=== PATIENT | male | born 1955 | race Caucasian/White ===

== ENCOUNTER 2019-07-08 09:14 | Day surgery (SDC) | payer MEDICARE ==
[2019-07-07 09:02] VITALS: BMI 38.4
[~2019-07-08 09:14] MED LIST: LACTATED RINGERS 1,000 ML IV SCH
[2019-07-08 09:38] VITALS: RESP 16; TEMP 98.2
[2019-07-08] MEDS ORDERED: LIDOCAINE 1% 20 ML VIAL (10MG/ML) FOR IV START INTRADERMA ONE (09:43)
[2019-07-08 09:55] LABS: Glucose,Whole Blood 193 mg/dL (75-99)
[2019-07-08] MEDS ORDERED: LIDOCAINE 1% INJ 10MG/ML (20 ML MDV) ONE (10:04)
[2019-07-08] MEDS ORDERED: PROPOFOL 10 MG/ML 20 ML VIAL IV ONE (10:04)
--- NOTE | 2019-07-08 10:35 | P.PCN ---
Date of Procedure: 07/08/19 Description of Procedure: BRIEF HISTORY: Patient is a 63-year-old pleasant male scheduled for an elective colonoscopy as a part of screening for malignant neoplasm of the colon. Patient believes last colonoscopy was 5 years ago was ensure the results. Denies any family history of colon cancer, change in bowel habits, blood per rectum or abdominal pain. PROCEDURE PERFORMED: Colonoscopy. PREOPERATIVE DIAGNOSIS: Screening for malignant neoplasm colon, last colonoscopy 5 years ago per the marta coleman's recollection. ESTIMATED BLOOD LOSS: Minimal. IV sedation per Anesthesia. PROCEDURE: After informed consent was obtained, the patient, was brought into the endoscopy unit. IV sedation was administered by Anesthesia under continuous monitoring. Digital rectal examination was normal. Initially the Olympus CF-190 flexible video colonoscope was then inserted in the rectum, gradually advanced into the cecum without any difficulty. Careful examination was performed as the scope was gradually being withdrawn. Ileocecal valve and the appendiceal orifice were visualized and appeared normal. Prep was excellent. Mucosa of the cecum, ascending colon, transverse colon, descending colon, sigmoid colon, and rectum appeared normal. Retroflexion was performed in the rectum and no lesions were seen, low-grade internal hemorrhoids. The patient tolerated the procedure well. IMPRESSION: Normal-appearing colon from rectum to cecum. RECOMMENDATIONS: Findings of this examination were discussed with the patient and his . Okay to resume medications and diet. Would recommend repeat colonoscopy in 10 years for screening purposes, however if patient had polypectomies on prior colono scopies 5 year interval would be more appropriate.
[2019-07-08 11:14] VITALS: BP 147/84; PULSE 92
== END 2019-07-08 11:34 | disposition home or self-care (01) ==
LOC: ORWHC2ENDO 09:14
PROVIDERS: ATTEND Internal Medicine
DX: Z12.11 Encounter for screening for malignant neoplasm of colon (principal); K64.8 Other hemorrhoids; I10 Essential (primary) hypertension; E78.5 Hyperlipidemia, unspecified; E11.9 Type 2 diabetes mellitus without complications; E07.9 Disorder of thyroid, unspecified; F32.9 Major depressive disorder, single episode, unspecified; I25.10 Atherosclerotic heart disease of native coronary artery without angina pectoris; I25.2 Old myocardial infarction; Z95.5 Presence of coronary angioplasty implant and graft; Z87.891 Personal history of nicotine dependence; Z79.84 Long term (current) use of oral hypoglycemic drugs; Z79.890 Hormone replacement therapy; Z79.899 Other long term (current) drug therapy
CPT/HCPCS: J2001; J2704; G0121

== ENCOUNTER → 2023-01-20 | Outpatient (CLI) | payer MEDICARE, OTHER ==
[2023-01-20 15:52] LABS: Appearance,Urine Clear (Clear); Bilirubin,Urine Negative (Negative); Blood,Urine Small (Negative); Color,Urine Yellow (Yellow); Ketones,Urine Negative (Negative); Nitrite,Urine Negative (Negative); PH, Urine 5.5 (5.0-8.0); Urobilinogen,Urine 0.2 (0.2,1.0)
[2023-01-20 16:16] LABS: Bacteria,Urine Trace /HPF (None Seen)
[2023-01-20 17:03] LABS: Basophils # (A) 0.11 X 10*3/uL (0.00-0.10); Basophils % (A) 1.6 %; Eosinophils # (A) 0.31 X 10*3/uL (0.04-0.35); Eosinophils % (A) 4.4 %; HCT 30.3 % (39.6-50.0); HGB 8.8 g/dL (13.0-17.0); Immature Grans, Automated 0.4 %; Lymphocytes # (A) 0.66 X 10*3/uL (0.90-5.00); Lymphocytes % (A) 9.3 %; MCH 22.7 pg (27.0-32.0); MCV 78.1 fL (80.0-97.0); Mean Platelet Volume 9.6 fL (9.5-12.2); Monocytes % (A) 8.5 %; NRBC Per 100 WBC 0 /100 WBCS (0.0-0.0); Neutrophils # (A) 5.38 X 10*3/uL (1.80-7.70); Neutrophils % (A) 75.8 %; Platelet Count 350 X 10*3/uL (140-440); RBC 3.88 X 10*6/uL (4.40-5.60); RDW 18.3 % (11.5-14.5); WBC 7.09 X 10*3/uL (4.50-10.00)
[2023-01-20 17:07] LABS: African American GFR (CKD) 58.5 (60.0-200.0); Anion Gap 15.8 mmol/L (10.00-18.00); BUN/Creat Ratio 16.6 Ratio (12.00-20.00); Blood Urea Nitrogen 23.4 mg/dL (9.0-27.0); Calcium 9.4 mg/dL (8.7-10.3); Carbon Dioxide 21.6 mmol/L (20.0-27.5); Non-African American GFR(CKD) 50.5 (60.0-200.0); Potassium 4.8 mmol/L (3.5-5.5)
== END | disposition home or self-care (01) ==
LOC: LABPAT 09:36
PROVIDERS: ATTEND Urology
DX: Z01.812 Encounter for preprocedural laboratory examination (principal); N40.1 Benign prostatic hyperplasia with lower urinary tract symptoms; R31.29 Other microscopic hematuria
CPT/HCPCS: 80048; 81001; 85025; 87086

== ENCOUNTER 2023-01-28 05:35 | Day surgery (SDC) | payer MEDICARE, OTHER ==
[2023-01-24 12:30] VITALS: BMI 33.1
[2023-01-28] MEDS ORDERED: ONDANSETRON 4 MG/2 ML VIAL IVP ONE (06:03)
[2023-01-28] MEDS ORDERED: LIDOCAINE 1% (10MG/ML) FOR IV START INTRADERMA PRN (06:03)
[2023-01-28] MEDS ORDERED: MIDAZOLAM 2 MG/2 ML VIAL IV PRN (06:03)
[2023-01-28] MEDS ORDERED: DEXAMETHASONE SOD PHOSPHATE 4 MG/ML 1 ML VIAL IV ONE (06:03)
[2023-01-28] MEDS: LACTATED RINGERS 1,000 ML IV SCH ×2 (06:44→07:16)
[2023-01-28 06:57] LABS: Glucose,Whole Blood 262 mg/dL (70-110)
[2023-01-28] MEDS ORDERED: HYDROmorphone 0.5 MG/0.5 ML SYRINGE IVP PRN (07:00)
[2023-01-28 07:07] LABS: Anisocytosis Slight; Basophils # (A) 0.1 k/uL (0-0.2); Basophils % (A) 1 %; Eosinophils # (A) 0.4 k/uL (0-0.7); Eosinophils % (A) 5 %; HGB 9.1 gm/dL (13.0-17.5); Hypochromasia Marked; Lymphocytes # (A) 0.7 k/uL (1.0-4.8); Lymphocytes % (A) 11 %; MCH 23.1 pg (25.0-35.0); MCHC 29.4 g/dL (31.0-37.0); MCV 78.6 fL (80.0-100.0); Mean Platelet Volume 7.6; Microcytosis Slight; Monocytes # (A) 0.5 k/uL (0-1.0); Monocytes % (A) 7 %; Neutrophils # (A) 5.1 k/uL (1.3-7.7); Neutrophils % (A) 73 %; Platelet Count 323 k/uL (150-450); Poikilocytosis Slight; RBC 3.94 m/uL (4.30-5.90); RDW 17.5 % (11.5-15.5); WBC 6.9 k/uL (3.8-10.6)
[2023-01-28] MEDS ORDERED: MIDAZOLAM 2 MG/2 ML VIAL ONE (07:11)
[2023-01-28] MEDS ORDERED: NEOSTIGMINE 1 MG/ML 10 ML VIAL ONE (07:11)
[2023-01-28] MEDS ORDERED: SUCCINYLCHOLINE CHLORIDE 200 MG/10 ML VIAL IV ONE (07:11)
[2023-01-28] MEDS ORDERED: ROCURONIUM 10 MG/ML (5 ML VIAL) IV ONE (07:11)
[2023-01-28] MEDS ORDERED: fentaNYL (PF) 50 MCG/ML 2 ML AMP ONE (07:11)
[2023-01-28] MEDS ORDERED: PROPOFOL 10 MG/ML 20 ML VIAL IV ONE (07:11)
[2023-01-28] MEDS ORDERED: GLYCOPYRROLATE 0.2 MG/ML 2 ML VIAL ONE (07:11)
[2023-01-28] MEDS ORDERED: LIDOCAINE 2% INJ 20 MG/ML (2 ML VIAL) ONE (07:11)
--- NOTE | 2023-01-28 07:22 | P.HPIHPCON ---
History of Present Illness H&P Date: 01/28/23 Chief Complaint: BPH, urinary retention This is a 67-year-old male with history of BPH, and significant prostate enlargement patient is in urinary retention and has failed trial of voids. Underwent a cystoscopy which confirmed evidence of an obstructive prostate. Option of transurethral resection of the prostate was discussed with him. Risk of bleeding, infection, urinary incontinence, retrograde ejaculate, erectile dysfunction, strictures and persistent retention was discussed with him. Discussed with him given his comorbidities risk of medical complications. He understood all the risk and agreed to proceed Consent for Procedure: I have explained the operation/procedure to the patient, including the risks, benefits, side effects, alternative therapies (including not receiving the proposed treatment or service), the likelihood of the patient achieving his/her goals, and potential recuperation problems for the procedure/sedation/analgesia, as well as any blood products, if indicated. I also explained to the patient the risks, benefits and side effects of the alternatives, as well as the risks related to not receiving the proposed procedure, care, treatment, or services. Past Medical History Past Medical History: COPD, Diabetes Mellitus, Hyperlipidemia, Hypertension, Myocardial Infarction ([place]), Prostate Disorder, Thyroid Disorder Additional Past Medical History / Comment(s): Enlarged prostate, difficulty urinating for the last 3 weeks, has had urinary catheter for the last 2 1/2 weeks. Hemorrhoids with bleeding with each bowel movement, due to have Colonoscopy, has Dr appointment regarding this 02/04/23. Patient states has had low iron before because of bleeding hemorrhoids. Occasional lightheadedness. Last Myocardial Infarction Date:: 2000 History of Any Multi-Drug Resistant Organisms: None Reported Past Surgical History: Heart Catheterization, Heart Catheterization With Stent, Hernia Repair Additional Past Surgical History / Comment(s): COLONOSCOPY. 3 total stents. Last heart catheterization 01/07/23, no stents. Past Anesthesia/Blood Transfusion Reactions: No Reported Reaction Additional Past Anesthesia/Blood Transfusion Reaction / Comment(s): WAS SLOW TO WAKE UP AFTER HERNIA SURGERY. Date of Last Stent Placement:: 2000, 2014 Past Psychological History: Depression Smoking Status: Former smoker Past Alcohol Use History: Occasional Additional Past Alcohol Use History / Comment(s): QUIT SMOKING IN 2000. Past Drug Use History: None Reported - Past Family History Mother Family Medical History: No Reported History Medications and Allergies Home Medications Medication Instructions Recorded Confirmed Type Insulin NPH Hum/Reg Insulin Hm 10 unit SQ BID-W/MEALS 07/07/19 01/28/23 History [Novolin 70-30 100 Unit/ml Vial] Isosorbide Mononitrate ER [Imdur] 60 mg PO QAM 07/07/19 01/28/23 History Levothyroxine Sodium [Synthroid] 50 mcg PO QAM 07/07/19 01/28/23 History PARoxetine [Paxil] 20 mg PO QAM 07/07/19 01/28/23 History Zolpidem [Ambien] 10 mg PO HS 07/07/19 01/28/23 History glyBURIDE [Diabeta] 10 mg PO AC-BID 07/07/19 01/28/23 History metFORMIN HCL [Glucophage] 1,000 mg PO BID 07/07/19 01/28/23 History Advair (Unknown Dose) 1 puff INHALATION BID 01/24/23 01/28/23 History Aspirin [Adult Low Dose Aspirin EC] 81 mg PO DAILY 01/24/23 01/28/23 History Atorvastatin [Lipitor] 80 mg PO HS 01/24/23 01/28/23 History Clopidogrel [Plavix] 75 mg PO DAILY 01/24/23 01/28/23 History Furosemide [Lasix] 40 mg PO DAILY 01/24/23 01/28/23 History Glipizide (Unknown Dose) 1 tab PO DAILY 01/24/23 01/28/23 History Losartan [Cozaar] 50 mg PO HS 01/24/23 01/28/23 History Multivitamins, Thera [Multivitamin 1 tab PO DAILY 01/24/23 01/28/23 History (formulary)] Potassium Chloride ER [K-Dur 10] 10 meq PO DAILY 01/24/23 01/28/23 History Solifenacin Succinate 5 mg PO HS 01/24/23 01/28/23 History Spironolactone 25 mg PO DAILY 01/24/23 01/28/23 History Stool Softener 1 tab PO DAILY 01/24/23 01/28/23 History Tamsulosin [Flomax] 0.4 mg PO HS 01/24/23 01/28/23 History carvediloL 12.5 mg PO QAM 01/24/23 01/28/23 History Allergies Allergy/AdvReac Type Severity Reaction Status Date / Time No Known Allergies Allergy Verified 01/28/23 06:13 Surgical - Exam Vital Signs Temp Pulse Resp BP Pulse Ox 97.7 F 73 20 127/63 95 01/28/23 06:24 01/28/23 06:24 01/28/23 06:24 01/28/23 06:24 01/28/23 06:24 - General no distress, moderate pain - Eyes normal ocular movement, no pale - ENT normal nares, normal mucosa - Respiratory normal expansion, normal respiratory effort - Abdomen Abdomen: soft, non tender - Psychiatric oriented to time, oriented to person, oriented to place Results - Labs 01/28/23 07:02 Abnormal Lab Results - Last 24 Hours (Table) 01/28/23 01/28/23 Range/Units 06:38 07:02 RBC 3.94 L (4.30-5.90) m/uL Hgb 9.1 L (13.0-17.5) gm/dL Hct 31.0 L (39.0-53.0) % MCV 78.6 L (80.0-100.0) fL MCH 23.1 L (25.0-35.0) pg MCHC 29.4 L (31.0-37.0) g/dL RDW 17.5 H (11.5-15.5) % Lymphocytes # 0.7 L (1.0-4.8) k/uL POC Glucose (mg/dL) 262 H (70-110) mg/dL Assessment and Plan Assessment: 67-year-old male with history of BPH OR for TURP
[2023-01-28 07:25] LABS: Potassium 5.3 mmol/L (3.5-5.1)
[2023-01-28] MEDS ORDERED: INSULIN ASPART (NovoLOG) 100 UNIT/ML VIAL SQ SCH (07:30)
[2023-01-28 09:21] VITALS: TEMP 97.6
--- NOTE | 2023-01-28 09:25 | P.OP ---
Date of Procedure: 01/28/23 Preoperative Diagnosis: BPH, urinary retention Postoperative Diagnosis: Same Procedure(s) Performed: cystoscopy, TURP (bipolar) Implants: none Anesthesia: RIZWANA Surgeon: Gael Jay Estimated Blood Loss (ml): 150 Pathology: other (prostate tissue) Condition: stable Disposition: PACU Indications for Procedure: This is a 67-year-old male with history of BPH, and significant prostate enlargement patient is in urinary retention and has failed trial of voids. Underwent a cystoscopy which confirmed evidence of an obstructive prostate. Option of transurethral resection of the prostate was discussed with him. Risk of bleeding, infection, urinary incontinence, retrograde ejaculate, erectile dysfunction, strictures and persistent retention was discussed with him. Discussed with him given his comorbidities risk of medical complications. He understood all the risk and agreed to proceed Operative Findings: Significant prostate enlargement, with significant medial lobe with intravesical extension Description of Procedure: patient brought to the operating room, general anesthesia was induced. He was prepped and draped in sterile fashion and placed in a dorsal lithotomy position. Resectoscope fitted with 25-Beninese sheath was inserted per urethra, cystoscopy was performed which showed no abnormality within the bladder, but of note the bladder was heavily trabeculated. There was significant prostate enlargement with a significant medial lobe with significant intravesical extension. Using the bipolar resectoscope the prostate was resected down to the surgical capsule. Area of resection was fulgurated, hemostasis was achieved using cautery. Resection was carried distal to the bladder neck and staying proximal to the Veru. Both ureteral orifices were visualized and they were not injured during resection. Prostate chips were irrigated out using the Rafaelaik evacuator. Repeat cystoscopy showed no evidence of bleeding, or any prostate chips. The prostatic fossa was wide open. recystoscope was withdrawn and a 22-Beninese Sanchez was placed with return of clear urine. The bladder was irrigated to clear. Patient tolerated procedure well was taken to recovery in stable condition
[2023-01-28 09:31] LABS: Glucose,Whole Blood 296 mg/dL (70-110)
[2023-01-28 10:01] VITALS: RESP 18
[2023-01-28 12:09] VITALS: BP 149/74; PULSE 67
== END 2023-01-28 12:56 | disposition home or self-care (01) ==
LOC: OR 05:35
PROVIDERS: ATTEND Urology
DX: N40.1 Benign prostatic hyperplasia with lower urinary tract symptoms (principal); R33.8 Other retention of urine; E11.9 Type 2 diabetes mellitus without complications; J44.9 Chronic obstructive pulmonary disease, unspecified; E78.5 Hyperlipidemia, unspecified; I10 Essential (primary) hypertension; I25.2 Old myocardial infarction; F10.90 Alcohol use, unspecified, uncomplicated; Z87.891 Personal history of nicotine dependence; F32.A Depression, unspecified; E07.9 Disorder of thyroid, unspecified; Z98.890 Other specified postprocedural states; Z95.5 Presence of coronary angioplasty implant and graft
CPT/HCPCS: 86900; 86901; 80051; 85025; 86850; 52601; J2250; J0330; J2710; J0690; J2405; J3010; J2704; J2001; 88305

== ENCOUNTER 2023-03-03 17:38 | Inpatient (IN) | payer MEDICARE, OTHER ==
[2023-03-03] MEDS ORDERED: NALOXONE 0.4 MG/ML 1 ML VIAL IV PRN (17:49)
[2023-03-03] MEDS ORDERED: ACETAMINOPHEN TAB 325 MG TAB PO PRN (17:49)
--- NOTE | 2023-03-03 17:56 | ED ---
General Adult HPI - General Chief complaint: Recheck/Abnormal Lab/Rx Stated complaint: CHF exacerbation, anemia Time Seen by Provider: 03/03/23 17:42 Source: patient, EMS, RN notes reviewed Mode of arrival: EMS Limitations: no limitations - History of Present Illness Initial comments: 67-year-old male presenting as transfer from outside hospital with anemia and CHF. Patient has history of CAD and recent history of anemia. He received 2 units transfusion one week ago at outside hospital. Patient presents to [facility] with chief complaint of lightheadedness. He was noted to be anemic with a hemoglobin of 6.6 requiring transfusion. Initially had an elevated BNP and was given 20 mg Lasix. Patient's chief complaint was lightheadedness and mild dyspnea. No central chest pain. Denies rectal bleeding and apparently had Hemoccult testing performed prior to transfer which was negative. He is a little over one month postop TURP. Denies fever. Denies cough. - Related Data Home Medications Medication Instructions Recorded Confirmed Insulin NPH Hum/Reg Insulin Hm 10 unit SQ PC-BID 07/07/19 03/03/23 [Novolin 70-30 100 Unit/ml Vial] Isosorbide Mononitrate ER [Imdur] 60 mg PO DAILY 07/07/19 03/03/23 Levothyroxine Sodium [Synthroid] 50 mcg PO DAILY 07/07/19 03/03/23 PARoxetine [Paxil] 20 mg PO DAILY 07/07/19 03/03/23 Zolpidem [Ambien] 10 mg PO HS 07/07/19 03/03/23 metFORMIN HCL [Glucophage] 1,000 mg PO BID 07/07/19 03/03/23 Aspirin [Adult Low Dose Aspirin EC] 81 mg PO DAILY 01/24/23 03/03/23 Atorvastatin [Lipitor] 80 mg PO HS 01/24/23 03/03/23 Clopidogrel [Plavix] 75 mg PO DAILY 01/24/23 03/03/23 Furosemide [Lasix] 40 mg PO DAILY 01/24/23 03/03/23 Losartan [Cozaar] 50 mg PO HS 01/24/23 03/03/23 Multivitamins, Thera [Multivitamin 1 tab PO DAILY 01/24/23 03/03/23 (formulary)] Potassium Chloride ER [K-Dur 10] 10 meq PO DAILY 01/24/23 03/03/23 Solifenacin Succinate 5 mg PO HS 01/24/23 03/03/23 Spironolactone 25 mg PO DAILY 01/24/23 03/03/23 Tamsulosin [Flomax] 0.4 mg PO HS 01/24/23 03/03/23 carvediloL 12.5 mg PO DAILY 01/24/23 03/03/23 Ferrous Sulfate [Iron (65 MG 325 mg PO DAILY 03/03/23 03/03/23 Elemental)] Fluticasone Propion/Salmeterol 1 puff INHALATION RT-BID 03/03/23 03/03/23 [Advair 250-50 Diskus] glipiZIDE [Glucotrol] 10 mg PO DAILY 03/03/23 03/03/23 Allergies Allergy/AdvReac Type Severity Reaction Status Date / Time No Known Allergies Allergy Verified 03/03/23 18:18 Review of Systems ROS Statement: Those systems with pertinent positive or pertinent negative responses have been documented in the HPI. ROS Other: All systems not noted in ROS Statement are negative. Past Medical History Past Medical History: Diabetes Mellitus, Hyperlipidemia, Hypertension, Myocardial Infarction ([place]), Thyroid Disorder Last Myocardial Infarction Date:: 2000 History of Any Multi-Drug Resistant Organisms: None Reported Past Surgical History: Heart Catheterization With Stent, Hernia Repair Additional Past Surgical History / Comment(s): COLONOSCOPY Past Anesthesia/Blood Transfusion Reactions: No Reported Reaction Additional Past Anesthesia/Blood Transfusion Reaction / Comment(s): WAS SLOW TO WAKE UP AFTER HERNIA SX Date of Last Stent Placement:: Past Psychological History: Depression Past Alcohol Use History: Occasional Past Drug Use History: None Reported - Past Family History Mother Family Medical History: No Reported History General Exam Limitations: no limitations General appearance: alert, in no apparent distress Head exam: Present: atraumatic, normocephalic Eye exam: Present: normal appearance, PERRL ENT exam: Present: normal exam Neck exam: Present: normal inspection. Absent: tenderness Respiratory exam: Present: normal lung sounds bilaterally. Absent: respiratory distress, wheezes Cardiovascular Exam: Present: regular rate, normal rhythm GI/Abdominal exam: Present: soft. Absent: distended, tenderness, guarding Extremities exam: Present: normal inspection, normal capillary refill Neurological exam: Present: alert, oriented X3, CN II-XII intact. Absent: motor sensory deficit Psychiatric exam: Present: normal affect, normal mood Skin exam: Present: warm, dry, intact. Absent: pallor Course Vital Signs 03/03/23 17:47 Temperature 98 F Pulse Rate 85 Respiratory 20 Rate Blood Pressure 129/66 O2 Sat by Pulse 97 Oximetry Medical Decision Making - Medical Decision Making Was pt. sent in by a medical professional or institution (, [facility], [employer], urgent care, hospital, or [facility]...) When possible be specific @Sent from outside emergency department for anemia Did you speak to anyone other than the patient for history (EMS, parent, family, police, friend...)? What history was obtained from this source @ -No Did you review nursing and triage notes (agree or disagree)? Why? @ -I reviewed and agree with nursing and triage notes Were old charts reviewed (outside hosp., previous admission, EMS record, old EKG, old radiological studies, urgent care reports/EKG's, [facility] records)? Report findings @ -No old charts were reviewed Differential Diagnosis (chest pain, altered mental status, abdominal pain women, abdominal pain men, vaginal bleeding, weakness, fever, dyspnea, syncope, headache, dizziness, GI bleed, back pain, seizure, CVA, palpatations, mental health, musculoskeletal)? @ -Differential Syncope: Valvular disease, hypertrophic cardiomyopathy, pulmonary embolism, tamponade, tachycardia, bradycardia, OR, hypovolemia, hemorrhage, dissection, anemia, intracranial hemorrhage, seizure, hypoglycemia, carbon monoxide poisoning, this is not meant to be an all-inclusive list. EKG interpreted by me (3pts min.). @ -EKG sinus rhythm with first-degree AV block, frequent PVCs, rate of 81, ID interval 251, QRS duration 90, QTC [address] segment elevation. X-rays interpreted by me (1pt min.). @ -None done CT interpreted by me (1pt min.). @ -None done U/S interpreted by me (1pt. min.). @ -None done What testing was considered but not performed or refused? (CT, X-rays, U/S, labs)? Why? @ -None What meds were considered but not given or refused? Why? @ -None Did you discuss the management of the patient with other professionals (professionals i.e. , [facility], [employer]ER, lab, RT, psych nurse, elementary school social worker, driller and reamer, teacher, corporate officer, immigration case worker)? Give summary @Dr. Dodge Was smoking cessation discussed for >3mins.? @ -No Was critical care preformed (if so, how long)? @ -No Were there social determinants of health that impacted care today? How? (Homelessness, low income, unemployed, alcoholism, drug addiction, transportation, low edu. Level, literacy, decrease access to med. care, shelter, rehab)? @ -No Was there de-escalation of care discussed even if they declined (Discuss DNR or withdrawal of care, Hospice)? DNR status @ -No What co-morbidities impacted this encounter? (DM, HTN, Smoking, COPD, CAD, Cancer, CVA, ARF, Chemo, Hep., AIDS, mental health diagnosis, sleep apnea, morbid obesity)? @ -[CAD, anemia Was patient admitted / discharged? Hospital course, mention meds given and ro cristal, prescriptions, significant lab abnormalities, going to OR and other pertinent info. @ -[67-year-old male transferred from outside hospital for evaluation of anemia requiring transfusion and CHF. Patient been transfused one unit, repeat hemoglobin in the emergency department was 7.3. This will require trending. Patient's symptoms have improved with transfusion. He is also was given Lasix prior to transfer. No significant dyspnea currently. Patient will be admitted to internal medicine. Undiagnosed new problem with uncertain prognosis? @ -No Drug Therapy requiring intensive monitoring for toxicity (Heparin, Nitro, Insulin, Cardizem)? @ -No Were any procedures done? @ -No Diagnosis/symptom? @ -[Symptomatic anemia Acute, or Chronic, or Acute on Chronic? @ -Acute Uncomplicated (without systemic symptoms) or Complicated (systemic symptoms)? @ -Complicated Side effects of treatment? @ -No Exacerbation, Progression, or Severe Exacerbation? @ -No Poses a threat to life or bodily function? How? (Chest pain, USA, OR, pneumonia, PE, COPD, DKA, ARF, appy, cholecystitis, CVA, Diverticulitis, Homicidal, Suicidal, threat to staff... and all critical care pts) @ -Yes, hemorrhagic shock - Lab Data Result diagrams: 03/03/23 17:51 03/03/23 18:05 Lab Results 06/09/1303/03/23 03/03/23 Range/Units 17:51 17:51 18:05 WBC 8.8 (3.8-10.6) k/uL RBC 3.09 L (4.30-5.90) m/uL Hgb 7.3 L D (13.0-17.5) gm/dL Hct 23.6 L (39.0-53.0) % MCV 76.6 L (80.0-100.0) fL MCH 23.5 L (25.0-35.0) pg MCHC 30.7 L (31.0-37.0) g/dL RDW 17.5 H (11.5-15.5) % Plt Count 484 H (150-450) k/uL MPV 7.4 Hypochromasia Marked Poikilocytosis Marked Anisocytosis Slight Microcytosis Slight PT 11.9 (9.0-12.0) sec INR 1.2 H (<1.2) APTT 19.7 L (22.0-30.0) sec Sodium 137 (137-145) mmol/L Potassium 4.5 (3.5-5.1) mmol/L Chloride 103 (98-107) mmol/L Carbon Dioxide 22 (22-30) mmol/L Anion Gap 12 mmol/L BUN 45 H (9-20) mg/dL Creatinine 1.26 H (0.66-1.25) mg/dL Est GFR (CKD-EPI)AfAm 67 (>60 ml/min/1.73 sqM) Est GFR (CKD-EPI)NonAf 58 (>60 ml/min/1.73 sqM) Glucose 74 (74-99) mg/dL Calcium 8.9 (8.4-10.2) mg/dL Total Bilirubin 0.7 (0.2-1.3) mg/dL AST 21 (17-59) U/L ALT 22 (4-49) U/L Alkaline Phosphatase 75 (38-126) U/L NT-Pro-B Natriuret Pep pg/mL Total Protein 5.6 L (6.3-8.2) g/dL Albumin 3.3 L (3.5-5.0) g/dL 03/03/23 Range/Units 18:05 WBC (3.8-10.6) k/uL RBC (4.30-5.90) m/uL Hgb (13.0-17.5) gm/dL Hct (39.0-53.0) % MCV (80.0-100.0) fL MCH (25.0-35.0) pg MCHC (31.0-37.0) g/dL RDW (11.5-15.5) % Plt Count (150-450) k/uL MPV Hypochromasia Poikilocytosis Anisocytosis Microcytosis PT (9.0-12.0) sec INR (<1.2) APTT (22.0-30.0) sec Sodium (137-145) mmol/L Potassium (3.5-5.1) mmol/L Chloride (98-107) mmol/L Carbon Dioxide (22-30) mmol/L Anion Gap mmol/L BUN (9-20) mg/dL Creatinine (0.66-1.25) mg/dL Est GFR (CKD-EPI)AfAm (>60 ml/min/1.73 sqM) Est GFR (CKD-EPI)NonAf (>60 ml/min/1.73 sqM) Glucose (74-99) mg/dL Calcium (8.4-10.2) mg/dL Total Bilirubin (0.2-1.3) mg/dL AST (17-59) U/L ALT (4-49) U/L Alkaline Phosphatase (38-126) U/L NT-Pro-B Natriuret Pep 1530 pg/mL Total Protein (6.3-8.2) g/dL Albumin (3.5-5.0) g/dL Disposition Clinical Impression: Symptomatic anemia, CHF (congestive heart failure) Disposition: ADMITTED IP TO THIS [facility] Condition: Stable Is patient prescribed a controlled substance at d/c from ED?: No Referrals: Sandro Guzman MD [Primary Care Provider] - 1-2 days Time of Disposition: 18:31
[2023-03-03 18:23] LABS: Anisocytosis Slight; HCT 23.6 % (39.0-53.0); Hypochromasia Marked; MCH 23.5 pg (25.0-35.0); MCHC 30.7 g/dL (31.0-37.0); MCV 76.6 fL (80.0-100.0); Mean Platelet Volume 7.4; Microcytosis Slight; Platelet Count 484 k/uL (150-450); Poikilocytosis Marked; RBC 3.09 m/uL (4.30-5.90); RDW 17.5 % (11.5-15.5); WBC 8.8 k/uL (3.8-10.6)
[2023-03-03 18:24] LABS: HGB 7.3 gm/dL (13.0-17.5)
[2023-03-03 18:24] LABS: ALT 22 U/L (4-49); AST 21 U/L (17-59); African American GFR (CKD) 67 (>60 ml/min/1.73 sqM); Albumin 3.3 g/dL (3.5-5.0); Alkaline Phosphatase 75 U/L (38-126); Anion Gap 12 mmol/L; Blood Urea Nitrogen 45 mg/dL (9-20); Calcium 8.9 mg/dL (8.4-10.2); Carbon Dioxide 22 mmol/L (22-30); Chloride 103 mmol/L (98-107); Glucose 74 mg/dL (74-99); Non-African American GFR(CKD) 58 (>60 ml/min/1.73 sqM); Potassium 4.5 mmol/L (3.5-5.1); Sodium 137 mmol/L (137-145); Total Bilirubin 0.7 mg/dL (0.2-1.3); Total Protein 5.6 g/dL (6.3-8.2)
[2023-03-03 18:36] LABS: INR 1.2 (<1.2)
[2023-03-03 18:49] LABS: Partial Thromboplastin Time 19.7 sec (22.0-30.0); Prothrombin Time 11.9 sec (9.0-12.0)
[2023-03-03 19:01] LABS: Appearance,Urine Cloudy (Clear); Bilirubin,Urine Negative (Negative); Blood,Urine Trace (Negative); Color,Urine Light Yellow; Glucose,Urine (UA) Negative (Negative); Ketones,Urine Negative (Negative); Leukocyte Esterase,Urine Large (Negative); Mucus,Urine Rare /hpf; Nitrite,Urine Negative (Negative); Protein,Urine Negative (Negative); RBC,Urine 3 /hpf (0-5); Urobilinogen,Urine <2.0 mg/dL (<2.0); WBC,Urine 105 /hpf (0-5)
[2023-03-03] MEDS ORDERED: PANTOPRAZOLE 40 MG/10 ML VIAL IVP STA (19:07)
[2023-03-03 19:24] LABS: Eosinophils # (M) 0.62 k/uL (0-0.7); Lymphocytes # (M) 0.88 k/uL (1.0-4.8); Monocytes # (M) 0.26 k/uL (0-1.0); Neutrophils # (M) 7.04 k/uL (1.3-7.7); Neutrophils % (M) 80 %; Nucleated Red Blood Cells 0 /100 WBC (0-0); Ovalocytes Present; Target Cells Present; Tear Drop Cells Present; Total Cells Counted 100
[2023-03-03] MEDS: PANTOPRAZOLE 40 MG/10 ML VIAL IVP SCH (19:27)
[2023-03-03] MEDS ORDERED: DEXTROSE 50% SYRINGE 50 ML IVP PRN ×2 (20:32)
[2023-03-03] MEDS: SOLIFENACIN SUCCINATE 5 MG PO SCH (23:05)
[2023-03-03] MEDS: metFORMIN 500 MG TAB PO SCH (23:16)
[2023-03-03] MEDS: ZOLPIDEM 5 MG TAB PO SCH (23:17)
[2023-03-03] MEDS: TAMSULOSIN 0.4 MG CAP.ER.24H PO SCH (23:17)
[2023-03-03] MEDS: LOSARTAN 50 MG TAB PO SCH (23:18)
[2023-03-03] MEDS: ATORVASTATIN 80 MG TAB PO SCH (23:18)
[2023-03-04 05:57] LABS: Glucose,Whole Blood 100 mg/dL (70-110)
[2023-03-04] MEDS: INSULIN ASPART (NovoLOG) 100 UNIT/ML VIAL SQ SCH ×3 (06:29→17:28)
[2023-03-04] MEDS: LEVOTHYROXINE 50 MCG TAB PO SCH (06:44)
[2023-03-04 07:18] LABS: Anisocytosis Slight; Basophils # (A) 0.1 k/uL (0-0.2); Basophils % (A) 1 %; Eosinophils # (A) 0.6 k/uL (0-0.7); Eosinophils % (A) 7 %; HCT 22.4 % (39.0-53.0); Hypochromasia Marked; Lymphocytes # (A) 0.9 k/uL (1.0-4.8); Lymphocytes % (A) 12 %; MCH 23.3 pg (25.0-35.0); MCHC 29.9 g/dL (31.0-37.0); Mean Platelet Volume 7.6; Microcytosis Slight; Monocytes # (A) 0.6 k/uL (0-1.0); Monocytes % (A) 7 %; Neutrophils # (A) 5.3 k/uL (1.3-7.7); Neutrophils % (A) 70 %; Platelet Count 430 k/uL (150-450); Poikilocytosis Marked; RBC 2.87 m/uL (4.30-5.90); RDW 17.2 % (11.5-15.5); WBC 7.5 k/uL (3.8-10.6)
[2023-03-04 07:34] LABS: HGB 6.7 gm/dL (13.0-17.5)
[2023-03-04] MEDS: SYMBICORT 80-4.5 MCG INHALER INHALATION SCH ×2 (08:34→21:53)
[2023-03-04] MEDS: PARoxetine 20 MG TAB PO SCH (08:43)
[2023-03-04] MEDS: metFORMIN 500 MG TAB PO SCH ×2 (08:43→21:55)
[2023-03-04] MEDS: carvediloL 6.25 MG TAB PO SCH ×2 (08:43→21:56)
[2023-03-04] MEDS: MULTIVITAMINS, THERA 1 EACH TAB PO SCH (08:43)
[2023-03-04] MEDS: ISOSORBIDE MONONITRATE ER 60 MG TAB.ER.24H PO SCH (08:43)
[2023-03-04] MEDS: glipiZIDE 10 MG TAB PO SCH (08:43)
--- NOTE | 2023-03-04 09:49 | P.CONS ---
History of Present Illness - Reason for Consult Consult date: 03/04/23 Anemia Requesting physician: Marcio Dodge - Chief Complaint Dizziness - History of Present Illness This is a pleasant 67-year-old male who had presented to [facility] with complaints of dizziness and recheck on labs. He was recently found to be anemic and received 2 units of blood last week at outside facility. He has a history of coronary artery disease status post stents, diabetes mellitus, hypertension, hyperlipidemia, chronic anemia, and recent TURP. He states following his surgery had a significant amount of bloody urine procedure was done on 023. Patient does take aspirin and Plavix for coronary artery disease, denies any anticoagulation use or NSAID use. He was found to have a hemoglobin of 6.6 at [facility] was given 1 unit of blood and transferred to [facility] for further workup. Apparently patient also had a stool that was negative for occult blood. Gastroenterology was consulted for anemia. Patient denies any blood in his stool or black stool, denies any history of GI bleed. Denies any history of peptic ulcer disease, GERD, or epigastric pain. His last colonoscopy was with Dr. Castle and June 2019 that reported a normal colon. He believes he may have had an EGD in the past as well several years ago. Patient states he used to take iron however he stopped taking it and then restarted about one week ago. On admission he was noted to have a elevated BNP consistent with congestive heart failure. He does state that he does have a history of CHF. He reports that he is still having some difficulty with breathing and shortness of breath, denies any chest pain, abdominal pain, nausea, vomiting, fever or chills. Patient had a drop in his hemoglobin this morning to 6.7. One unit of blood as ordered. Patient is currently on 2 L of nasal cannula. Admitting Labs WBC 8.8 hemoglobin 7.3 hematocrit 23.6 platelet count 484,000 INR 1.2 sodium 137 potassium 4.5 BUN of 45 creatinine 1.26 total bilirubin 0.7 AST 21 ALT 22 alkaline phosphatase 75 a trace of blood and urine. Review of Systems REVIEW OF SYSTEMS: CARDIOPULMONARY: No chest pain, reports shortness of breath. Gastrointestinal: No abdominal or epigastric pain. No nausea or vomiting. No hematemesis, coffee-ground emesis. No rectal bleeding, or melena. GENITOURINARY: No dysuria or hematuria. MUSCULOSKELETAL: Reports normal range of motion. SKIN: No rashes. No jaundice. ENDOCRINE: No chills, fevers. No excessive weight gain or loss. No polydipsia or polyuria. PSYCHIATRIC: Unremarkable. NEUROLOGY: No change in mental status. Denies dizziness, headache. ENT: Vision unremarkable. CONSTITUTIONAL: No recent weight loss. No fever, chills, night sweats. Past Medical History Past Medical History: Diabetes Mellitus, Hyperlipidemia, Hypertension, Myocar dial Infarction ([place]), Thyroid Disorder Last Myocardial Infarction Date:: 2000 History of Any Multi-Drug Resistant Organisms: None Reported Past Surgical History: Heart Catheterization With Stent, Hernia Repair Additional Past Surgical History / Comment(s): COLONOSCOPY Past Anesthesia/Blood Transfusion Reactions: No Reported Reaction Additional Past Anesthesia/Blood Transfusion Reaction / Comm: WAS SLOW TO WAKE UP AFTER HERNIA SX Date of Last Stent Placement:: 2000,2014,2022 Past Psychological History: Depression Smoking Status: Never smoker Past Alcohol Use History: Occasional Additional Past Alcohol Use History / Comment(s): QUIT SMOKING 2000 Past Drug Use History: None Reported - Past Family History Mother Family Medical History: No Reported History Medications and Allergies Home Medications Medication Instructions Recorded Confirmed Type Insulin NPH Hum/Reg Insulin Hm 10 unit SQ PC-BID 07/07/19 03/03/23 History [Novolin 70-30 100 Unit/ml Vial] Isosorbide Mononitrate ER [Imdur] 60 mg PO DAILY 07/07/19 03/03/23 History Levothyroxine Sodium [Synthroid] 50 mcg PO DAILY 07/07/19 03/03/23 History PARoxetine [Paxil] 20 mg PO DAILY 07/07/19 03/03/23 History Zolpidem [Ambien] 10 mg PO HS 07/07/19 03/03/23 History metFORMIN HCL [Glucophage] 1,000 mg PO BID 07/07/19 03/03/23 History Aspirin [Adult Low Dose Aspirin EC] 81 mg PO DAILY 01/24/23 03/03/23 History Atorvastatin [Lipitor] 80 mg PO HS 01/24/23 03/03/23 History Clopidogrel [Plavix] 75 mg PO DAILY 01/24/23 03/03/23 History Furosemide [Lasix] 40 mg PO DAILY 01/24/23 03/03/23 History Losartan [Cozaar] 50 mg PO HS 01/24/23 03/03/23 History Multivitamins, Thera [Multivitamin 1 tab PO DAILY 01/24/23 03/03/23 History (formulary)] Potassium Chloride ER [K-Dur 10] 10 meq PO DAILY 01/24/23 03/03/23 History Solifenacin Succinate 5 mg PO HS 01/24/23 03/03/23 History Spironolactone 25 mg PO DAILY 01/24/23 03/03/23 History Tamsulosin [Flomax] 0.4 mg PO HS 01/24/23 03/03/23 History carvediloL 12.5 mg PO DAILY 01/24/23 03/03/23 History Ferrous Sulfate [Iron (65 MG 325 mg PO DAILY 03/03/23 03/03/23 History Elemental)] Fluticasone Propion/Salmeterol 1 puff INHALATION RT-BID 03/03/23 03/03/23 History [Advair 250-50 Diskus] glipiZIDE [Glucotrol] 10 mg PO DAILY 03/03/23 03/03/23 History Allergies Allergy/AdvReac Type Severity Reaction Status Date / Time No Known Allergies Allergy Verified 03/03/23 18:18 Physical Exam Vitals: Vital Signs Temp Pulse Pulse Resp BP BP Pulse Ox 03/04/23 08:42 80 16 132/69 99 03/04/23 08:38 99 03/04/23 04:00 97.8 F 20 91/66 97 03/04/23 01:11 90 20 03/03/23 23:00 98.1 F 90 20 147/82 03/03/23 19:49 82 22 118/69 100 03/03/23 17:47 98 F 85 20 129/66 97 Intake and Output 03/03/23 03/04/23 03/04/23 22:59 06:59 14:59 Intake Total 400 350 Balance 400 350 Intake: Oral 400 350 Other: Voiding Method Toilet Urinal # Voids 1 Weight 102.512 kg 100.1 kg General appearance: The patient is alert, oriented, appears in no acute distress. HET: Head is normocephalic and atraumatic. Conjunctiva pink. Sclera anicteric. Neck: Supple without lymphadenopathy. Trachea midline. Heart: S1 S2. Regular rate and rhythm. Lungs: Clear to auscultation. Abdomen: Soft, nontender, nondistended with bowel sounds. No guarding or rigidity. Skin: No rashes. No jaundice. Extremities: Normal skin color and turgor. No pedal edema. Neurological: No focal deficits. Alert and oriented x3. Results CBC & Chem 7: 03/04/23 06:32 03/03/23 18:05 Labs: Abnormal Lab Results - Last 24 Hours (Table) 03/03/23 03/03/23 03/03/23 Range/Units 17:51 17:51 17:54 RBC 3.09 L (4.30-5.90) m/uL Hgb 7.3 L D (13.0-17.5) gm/dL Hct 23.6 L (39.0-53.0) % MCV 76.6 L (80.0-100.0) fL MCH 23.5 L (25.0-35.0) pg MCHC 30.7 L (31.0-37.0) g/dL RDW 17.5 H (11.5-15.5) % Plt Count 484 H (150-450) k/uL Lymphocytes # (1.0-4.8) k/uL Lymphocytes # (Manual) 0.88 L (1.0-4.8) k/uL INR 1.2 H (<1.2) APTT 19.7 L (22.0-30.0) sec BUN (9-20) mg/dL Creatinine (0.66-1.25) mg/dL Total Protein (6.3-8.2) g/dL Albumin (3.5-5.0) g/dL Urine Blood Trace H (Negative) Ur Leukocyte Esterase Large H (Negative) Urine WBC 105 H (0-5) /hpf Urine Mucus Rare H (None) /hpf Crossmatch 03/03/23 03/03/23 03/04/23 Range/Units 18:00 18:05 06:32 RBC 2.87 L (4.30-5.90) m/uL Hgb 6.7 L* (13.0-17.5) gm/dL Hct 22.4 L (39.0-53.0) % MCV 78.0 L (80.0-100.0) fL MCH 23.3 L (25.0-35.0) pg MCHC 29.9 L (31.0-37.0) g/dL RDW 17.2 H (11.5-15.5) % Plt Count (150-450) k/uL Lymphocytes # 0.9 L (1.0-4.8) k/uL Lymphocytes # (Manual) (1.0-4.8) k/uL INR (<1.2) APTT (22.0-30.0) sec BUN 45 H (9-20) mg/dL Creatinine 1.26 H (0.66-1.25) mg/dL Total Protein 5.6 L (6.3-8.2) g/dL Albumin 3.3 L (3.5-5.0) g/dL Urine Blood (Negative) Ur Leukocyte Esterase (Negative) Urine WBC (0-5) /hpf Urine Mucus (None) /hpf Crossmatch See Detail Assessment and Plan (1) Microcytic hypochromic anemia Narrative/Plan: 67-year-old who presented with microcytic hypochromic anemia with a known history of chronic anemia who was previously on iron and stopped with a recent restart one week ago. Patient underwent TURP on 01/28/2023 for BPH and urinary retention at that time preop blood work did show hemoglobin 9.1. Patient states he had a significant amount of gross hematuria post procedure. Patient had some complaints of dizziness and has had some shortness of breath he was noted to have elevated BNP with a known history of CHF. Was initially seen on outside facility and found to have a hemoglobin of 6.6 given 2 units of blood at that time. Denies any signs or symptoms of GI bleed. No previous history of GI bleed. Patient does have a history of coronary artery disease on aspirin and Plavix. Last colonoscopy in 2019 with a normal colon. Unclear etiology at this time of anemia, could likely be related to post procedure TURP with a known history of chronic anemia. Recommend continuing iron, will transfuse for hemoglobin of 6.7. Need to consider GI source of blood source especially as she is on dual antiplatelet for coronary artery disease and stenting. At this time patient still having shortness of breath last taken aspirin and Plavix yesterday in 03/03/2023. Current Visit: Yes Status: Acute Code(s): D50.9 - IRON DEFICIENCY ANEMIA, UNSPECIFIED SNOMED Code(s): 91664006 (2) CHF (congestive heart failure) Current Visit: Yes Status: Acute Code(s): I50.9 - HEART FAILURE, UNSPECIFIED SNOMED Code(s): 05397496 (3) Coronary artery disease Current Visit: Yes Status: Acute Code(s): I25.10 - ATHSCL HEART DISEASE OF [place] CORONARY ARTERY W/O ANG PCTRS SNOMED Code(s): 69219145 (4) Diabetes mellitus Current Visit: Yes Status: Acute Code(s): E11.9 - TYPE 2 DIABETES MELLITUS WITHOUT COMPLICATIONS SNOMED Code(s): 78351064 (5) S/P TURP (status post transurethral resection of prostate) Narrative/Plan: Done on 01/28/2023 Current Visit: Yes Status: Acute Code(s): Z90.79 - ACQUIRED ABSENCE OF OTHER GENITAL ORGAN(S) SNOMED Code(s): 384713757 (6) Chronic anemia Current Visit: Yes Status: Acute Code(s): D64.9 - ANEMIA, UNSPECIFIED SNOMED Code(s): 447918235 Plan: 1. Continue symptomatic and supportive care 2. Continue to hold aspirin and Plavix 3. Anemia workup ordered, consistent with iron deficiency anemia 4. Protonix 40 mg daily 5. Agree with blood transfusion 6. Daily CBC transfuse for hemoglobin less than 7 7. IV iron ordered daily 3 8. Need to consider possible upper or lower GI blood source. Plan for upper and lower endoscopy evaluation once patient's respiratory status is stable, likely or Friday. Thank you for this consultation, we will continue to follow. Dr. Lester Kelly I agree with the dictator's note, documented as a scribe by Matilde Noyola.
[2023-03-04 12:06] LABS: % Iron Saturation 3.51 (15.00-50.00); Ferritin 7.3 ng/mL (22.0-322.0)
[2023-03-04 12:19] LABS: Glucose,Whole Blood 121 mg/dL (70-110)
[2023-03-04] MEDS: PANTOPRAZOLE 40 MG/10 ML VIAL IVP SCH ×2 (12:40→21:55)
--- NOTE | 2023-03-04 13:31 | XR ---
EXAMINATION TYPE: XR chest 2V DATE OF EXAM: 03/04/2023 1:25 PM COMPARISON: None TECHNIQUE: XR chest 2V Frontal and lateral views of the chest. CLINICAL INDICATION:Male, 67 years old with history of SOB; FINDINGS: Lungs/Pleura: There is no evidence of pleural effusion or pneumothorax. Questionable left upper lung nodularity. Pulmonary vascularity: Unremarkable. Heart/mediastinum: Mildly prominent heart with prominence of the right hilar region. Musculoskeletal: Multiple level degenerative disc disease changes seen throughout the spine. IMPRESSION: Questionable left upper lung nodularity with prominence of the right hilar region which could represe nt adenopathy. Further evaluation with CT chest with IV contrast is recommended.
--- NOTE | 2023-03-04 17:12 | P.HPIM ---
History of Present Illness H&P Date: 03/04/23 Chief Complaint: Dizzy This is a pleasant 67-year-old patient follows with Dr. Guzman. 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 Chronic stable medical conditions include diabetes, hypertension, hyperlipidemia, hypothyroid. Patient underwent prostatectomy by Dr. stewart about 3 weeks ago. A week prior to that patient underwent cardiac catheterization. No intervention. Previously patient's had stents placed. Patient does go to rehab at [facility] Friday and Wednesdays. For last couple days patient being feeling more dizzy and lightheaded. When patient was in the parking lot at [facility]. Became more short of breath. Had to be helped inside the hospital. Found to be significantly anemic with a hemoglobin of 6.6. A week prior patient had a similar episode. Was found to be anemic and had to be given 2 units of blood. Patient does not remember having black stools. Also had edema Review of systems: GEN.: Tired EYES: None HEENT: None NECK: None RESPIRATORY: None CARDIOVASCULAR: None GASTROINTESTINAL: None GENITOURINARY: None MUSCULOSKELETAL: Some joint pain LYMPHATICS: None HEMATOLOGICAL: None PSYCHIATRY: None NEUROLOGICAL: None Past medical history to include: Diabetes, hypertension, hyperlipidemia, CAD with stent, depression, Social history: Lives alone. She smoked for about 30 years stopped in 2000. Alcohol occasionally. 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 Physical examination: VITAL SIGNS: 98, 85, 20, 129/86, 97% on 4 L on presentation GENERAL: BMI 31.7, sitting in the bed.. EYES: Pupils equal. Conjunctiva palel. HEENT: External appearance of nose and ears normal, oral cavity grossly normal. NECK: JVD not raised; masses not palpable. HEART: First and second heart sounds are normal; mild edema. LUNGS: Respiratory rate normal; decreased breath sounds. ABDOMEN: Soft, nontender, liver spleen not palpable, no masses palpable. PSYCH: Alert and oriented x3; mood and affect normal. MUSCULOSKELETAL:No Clubbing/cyanosis;muscles-grossly intact. OA NEUROLOGICAL: Cranial nerves grossly intact; no facial asymmetry, power and sensation grossly intact. LYMPHATICS: No lymph nodes palpable in the axilla and neck INVESTIGATIONS, reviewed in the clinical context: March 04: WBC 7.5 hemoglobin 6.7 platelets 4:30 Iron 14 TIBC 399% saturation 3.51 transferred and 25 ferritin 7.3 B12 297 folate 22.5 EKG tracing personally reviewed by me-no sinus rhythm. PVC Chest x-ray film personally reviewed by me-cardiomegaly lung mcdowell clear. March 03: Hemoglobin 7.3 platelets 404 sodium 137 potassium 4.5 BUN 45 creatinine 1.26 UA leukoesterase large. WBC 105 blood trace 01/28/2023: Hemoglobin 9.1 01/20/2023: Creatinine 1.4 Assessment and plan: -Acute severe anemia. Symptomatic. Patient about a week ago receive 2 units of blood. Received 1 unit of blood yesterday. Getting 1 unit this morning. No outward bleeding noted. Patient did have a prostatectomy about 2 weeks ago. That'll account for some blood loss. Hemolysis to be ruled out. GI source to be ruled out. Consult hematology. Consult GI. Iron deficiency noted. -Severe iron deficiency anemia Rule out GI cause. -Diabetes mellitus type 2, on oral hypoglycemic Follow Accu-Cheks with sliding scale -CAD with a prior history of stent. Patient had a cardiac catheterization 3 weeks ago. No intervention. Cozaar, Plavix, Lipitor, aspirin, Coreg -Chronic insomnia Ambien -Suspect underlying CK D. Creatinine 1.4 on 01/20/2023. Check renal ultrasound. -Bladder outflow obstruction, status post prostatectomy 2 weeks ago Flomax -Anxiety depression Paxil -Essential hypertension Cozaar, Coreg -Hypothyroid Synthroid -COPD in a previous smoker Advair -Hyperlipidemia Lipitor -Full code Aspirin Plavix has been held for now. PPI. GI was consulted with a view to upper and lower endoscopy. Hematology also consulted. Care was discussed with the patient. Renal ultrasound. Past Medical History Past Medical History: Diabetes Mellitus, Hyperlipidemia, Hypertension, Myocardial Infarction ([place]), Thyroid Disorder Last Myocardial Infarction Date:: 2000 History of Any Multi-Drug Resistant Organisms: None Reported Past Surgical History: Heart Catheterization With Stent, Hernia Repair Additional Past Surgical History / Comment(s): COLONOSCOPY Past Anesthesia/Blood Transfusion Reactions: No Reported Reaction Additional Past Anesthesia/Blood Transfusion Reaction / Comment(s): WAS SLOW TO WAKE UP AFTER HERNIA SX Date of Last Stent Placement:: 2000,2014,2022 Past Psychological History: Depression Smoking Status: Never smoker Past Alcohol Use History: Occasional Additional Past Alcohol Use History / Comment(s): QUIT SMOKING 2000 Past Drug Use History: None Reported - Past Family History Mother Family Medical History: No Reported History Medications and Allergies Home Medications Medication Instructions Recorded Confirmed Type Insulin NPH Hum/Reg Insulin Hm 10 unit SQ PC-BID 07/07/19 03/03/23 History [Novolin 70-30 100 Unit/ml Vial] Isosorbide Mononitrate ER [Imdur] 60 mg PO DAILY 07/07/19 03/03/23 History Levothyroxine Sodium [Synthroid] 50 mcg PO DAILY 07/07/19 03/03/23 History PARoxetine [Paxil] 20 mg PO DAILY 07/07/19 03/03/23 History Zolpidem [Ambien] 10 mg PO HS 07/07/19 03/03/23 History metFORMIN HCL [Glucophage] 1,000 mg PO BID 07/07/19 03/03/23 History Aspirin [Adult Low Dose Aspirin EC] 81 mg PO DAILY 01/24/23 03/03/23 History Atorvastatin [Lipitor] 80 mg PO HS 01/24/23 03/03/23 History Clopidogrel [Plavix] 75 mg PO DAILY 01/24/23 03/03/23 History Furosemide [Lasix] 40 mg PO DAILY 01/24/23 03/03/23 History Losartan [Cozaar] 50 mg PO HS 01/24/23 03/03/23 History Multivitamins, Thera [Multivitamin 1 tab PO DAILY 01/24/23 03/03/23 History (formulary)] Potassium Chloride ER [K-Dur 10] 10 meq PO DAILY 01/24/23 03/03/23 History Solifenacin Succinate 5 mg PO HS 01/24/23 03/03/23 History Spironolactone 25 mg PO DAILY 01/24/23 03/03/23 History Tamsulosin [Flomax] 0.4 mg PO HS 01/24/23 03/03/23 History carvediloL 12.5 mg PO DAILY 01/24/23 03/03/23 History Ferrous Sulfate [Iron (65 MG 325 mg PO DAILY 03/03/23 03/03/23 History Elemental)] Fluticasone Propion/Salmeterol 1 puff INHALATION RT-BID 03/03/23 03/03/23 History [Advair 250-50 Diskus] glipiZIDE [Glucotrol] 10 mg PO DAILY 03/03/23 03/03/23 History Allergies Allergy/AdvReac Type Severity Reaction Status Date / Time No Known Allergies Allergy Verified 03/03/23 18:18 Physical Exam Vitals: Vital Signs Temp Pulse Pulse Resp BP BP Pulse Ox 03/04/23 08:42 80 16 132/69 99 03/04/23 08:38 99 03/04/23 04:00 97.8 F 20 91/66 97 03/04/23 01:11 90 20 03/03/23 23:00 98.1 F 90 20 147/82 03/03/23 19:49 82 22 118/69 100 03/03/23 17:47 98 F 85 20 129/66 97 Intake and Output 03/03/23 03/04/23 03/04/23 22:59 06:59 14:59 Intake Total 400 360 Balance 400 360 Intake: IV 10 Invasive Line 1 10 Oral 400 350 Other: Voiding Method Toilet Toilet Urinal Urinal # Voids 1 Weight 102.512 kg 100.1 kg Results CBC & Chem 7: 03/04/23 06:32 03/03/23 18:05 Labs: Abnormal Lab Results - Last 24 Hours (Table) 03/03/23 03/03/23 03/03/23 Range/Units 17:51 17:51 17:54 RBC 3.09 L (4.30-5.90) m/uL Hgb 7.3 L D (13.0-17.5) gm/dL Hct 23.6 L (39.0-53.0) % MCV 76.6 L (80.0-100.0) fL MCH 23.5 L (25.0-35.0) pg MCHC 30.7 L (31.0-37.0) g/dL RDW 17.5 H (11.5-15.5) % Plt Count 484 H (150-450) k/uL Lymphocytes # (1.0-4.8) k/uL Lymphocytes # (Manual) 0.88 L (1.0-4.8) k/uL INR 1.2 H (<1.2) APTT 19.7 L (22.0-30.0) sec BUN (9-20) mg/dL Creatinine (0.66-1.25) mg/dL Total Protein (6.3-8.2) g/dL Albumin (3.5-5.0) g/dL Urine Blood Trace H (Negative) Ur Leukocyte Esterase Large H (Negative) Urine WBC 105 H (0-5) /hpf Urine Mucus Rare H (None) /hpf Crossmatch 03/03/23 03/03/23 03/04/23 Range/Units 18:00 18:05 06:32 RBC 2.87 L (4.30-5.90) m/uL Hgb 6.7 L* (13.0-17.5) gm/dL Hct 22.4 L (39.0-53.0) % MCV 78.0 L (80.0-100.0) fL MCH 23.3 L (25.0-35.0) pg MCHC 29.9 L (31.0-37.0) g/dL RDW 17.2 H (11.5-15.5) % Plt Count (150-450) k/uL Lymphocytes # 0.9 L (1.0-4.8) k/uL Lymphocytes # (Manual) (1.0-4.8) k/uL INR (<1.2) APTT (22.0-30.0) sec BUN 45 H (9-20) mg/dL Creatinine 1.26 H (0.66-1.25) mg/dL Total Protein 5.6 L (6.3-8.2) g/dL Albumin 3.3 L (3.5-5.0) g/dL Urine Blood (Negative) Ur Leukocyte Esterase (Negative) Urine WBC (0-5) /hpf Urine Mucus (None) /hpf Crossmatch See Detail Thrombosis Risk Factor Assmnt - Choose All That Apply Any of the Below Risk Factors Present?: Yes Each Factor Represents 1 point: Obesity (BMI >25), Swollen legs (current) Each Risk Factor Represents 2 Points: Age 61-74 years Thrombosis Risk Factor Assessment Total Risk Factor Score: 4 Thrombosis Risk Factor Assessment Level: Moderate Risk
[2023-03-04 18:02] LABS: Anisocytosis Slight; HCT 26.3 % (39.0-53.0); HGB 8.1 gm/dL (13.0-17.5); Hypochromasia Marked; MCH 24.2 pg (25.0-35.0); MCHC 30.8 g/dL (31.0-37.0); MCV 78.4 fL (80.0-100.0); Mean Platelet Volume 7.6; Microcytosis Slight; Platelet Count 459 k/uL (150-450); Poikilocytosis Marked; RBC 3.36 m/uL (4.30-5.90); RDW 17.4 % (11.5-15.5); WBC 8.5 k/uL (3.8-10.6)
--- NOTE | 2023-03-04 18:27 | US ---
EXAMINATION TYPE: US kidneys/renal and bladder DATE OF EXAM: 03/04/2023 COMPARISON: NONE CLINICAL INDICATION: Male, 67 years old with history of Evaluate cortex for CK D.; Eval for CKD EXAM MEASUREMENTS: Right Kidney: 12.3 x 5.5 x 6.7 cm Left Kidney: 12.9 x 4.8 x 5.5 cm Right Kidney: Cystic area seen on lateral border measuring 1.8 x 1.6 x 2.0cm. Cortical medullary diff erentiation is maintained. Left Kidney: No hydronephrosis seen. Hyperechoic lobulated area seen at mid pole measuring 0.25cm of the cortex. Cortical medullary differentiation is maintained. Bladder: wnl Bilateral Jets seen: Yes There is no evidence for hydronephrosis at this point in time. No nephrolithiasis is seen. No isacc s are identified. The urinary bladder is anechoic. Bilateral ureteral jets are seen. IMPRESSION: 1. No obstructive uropathy. 2. Cortical medullary differentiation is maintained. 3. Suspected Cortical scarring in the renal cortex on the left from prior injury.
[2023-03-04 20:12] LABS: Glucose,Whole Blood 183 mg/dL (70-110)
[2023-03-04] MEDS: TAMSULOSIN 0.4 MG CAP.ER.24H PO SCH (21:55)
[2023-03-04] MEDS: ATORVASTATIN 80 MG TAB PO SCH (21:55)
[2023-03-04] MEDS: ZOLPIDEM 5 MG TAB PO SCH (21:55)
[2023-03-04] MEDS: SOLIFENACIN SUCCINATE 5 MG PO SCH (21:56)
[2023-03-04] MEDS: LOSARTAN 50 MG TAB PO SCH (21:56)
[2023-03-05 06:03] LABS: Glucose,Whole Blood 184 mg/dL (70-110)
[2023-03-05] MEDS: LEVOTHYROXINE 50 MCG TAB PO SCH (06:38)
[2023-03-05] MEDS: INSULIN ASPART (NovoLOG) 100 UNIT/ML VIAL SQ SCH ×3 (06:38→17:37)
[2023-03-05 08:58] LABS: Anisocytosis Slight; HCT 25.8 % (39.0-53.0); HGB 7.5 gm/dL (13.0-17.5); Hypochromasia Marked; MCH 22.9 pg (25.0-35.0); MCHC 29.2 g/dL (31.0-37.0); MCV 78.5 fL (80.0-100.0); Mean Platelet Volume 7.5; Microcytosis Slight; Platelet Count 411 k/uL (150-450); Poikilocytosis Marked; RBC 3.29 m/uL (4.30-5.90); RDW 17.2 % (11.5-15.5); WBC 7.4 k/uL (3.8-10.6)
[2023-03-05] MEDS: ISOSORBIDE MONONITRATE ER 60 MG TAB.ER.24H PO SCH (09:02)
[2023-03-05] MEDS: PANTOPRAZOLE 40 MG/10 ML VIAL IVP SCH ×2 (09:02→20:25)
[2023-03-05] MEDS: metFORMIN 500 MG TAB PO SCH ×2 (09:02→20:25)
[2023-03-05] MEDS: SODIUM FERRIC GLUCONAT-SUCROSE 125 MG in SODIUM CHLORIDE 0.9% 100 ML IVPB SCH (09:02)
[2023-03-05] MEDS: carvediloL 6.25 MG TAB PO SCH ×2 (09:02→20:25)
[2023-03-05] MEDS: MULTIVITAMINS, THERA 1 EACH TAB PO SCH (09:02)
[2023-03-05] MEDS: glipiZIDE 10 MG TAB PO SCH (09:02)
[2023-03-05] MEDS: PARoxetine 20 MG TAB PO SCH (09:02)
[2023-03-05] MEDS: SYMBICORT 80-4.5 MCG INHALER INHALATION SCH ×2 (09:47→21:48)
[2023-03-05 09:48] LABS: African American GFR (CKD) 72 (>60 ml/min/1.73 sqM); Anion Gap 10 mmol/L; Blood Urea Nitrogen 28 mg/dL (9-20); Calcium 8.6 mg/dL (8.4-10.2); Carbon Dioxide 23 mmol/L (22-30); Chloride 104 mmol/L (98-107); Glucose 171 mg/dL (74-99); Non-African American GFR(CKD) 62 (>60 ml/min/1.73 sqM); Potassium 4.5 mmol/L (3.5-5.1); Sodium 137 mmol/L (137-145)
[2023-03-05 11:35] LABS: Glucose,Whole Blood 159 mg/dL (70-110)
[2023-03-05] MEDS ORDERED: PEG 3350 (236 GM/BTL) + LYTES 4,000 ML BOTTLE PO ONE (12:15)
--- NOTE | 2023-03-05 14:12 | P.PN ---
Progress Note - Text Progress Note Date: 03/05/23 Chief Complaint: Dizzy This is a pleasant 67-year-old patient follows with Dr. Guzman. Buffing [employer] is . Chronic stable medical conditions include diabetes, hypertension, hyperlipidemia, hypothyroid. Patient underwent prostatectomy by Dr. stewart about 3 weeks ago. A week prior to that patient underwent cardiac catheterization. No intervention. Previously patient's had stents placed. Patient does go to rehab at [facility] Friday and Wednesdays. For last couple days patient being feeling more dizzy and lightheaded. When patient was in the parking lot at [facility]. Became more short of breath. Had to be helped inside the hospital. Found to be significantly anemic with a hemoglobin of 6.6. A week prior patient had a similar episode. Was found to be anemic and had to be given 2 units of blood. Patient does not remember having black stools. Also had edema March 05: No external evidence of bleeding. Breathing better. Due for upper and lower GI endoscopy tomorrow. Clear liquid diet. Feeling better. Active Medications Acetaminophen (Acetaminophen Tab 325 Mg Tab) 650 mg PO Q6HR PRN PRN Reason: Mild Pain or Fever > 100.5 Atorvastatin Calcium (Atorvastatin 80 Mg Tab) 80 mg PO HS [facility] Last Admin: 03/04/23 21:55 Dose: 80 mg Budesonide/Formoterol Fumarate (Symbicort 80-4.5 Mcg Inhaler) 2 puff INHALATION RT-BID [facility] Last Admin: 03/05/23 09:47 Dose: 2 puff Carvedilol (Carvedilol 6.25 Mg Tab) 6.25 mg PO BID [facility] Last Admin: 03/05/23 09:02 Dose: 6.25 mg Dextrose/Water (Dextrose 50% Syringe 50 Ml) 25 ml IVP PER PROTOCOL PRN; Protocol PRN Reason: Hypoglycemia Dextrose/Water (Dextrose 50% Syringe 50 Ml) 50 ml IVP PER PROTOCOL PRN; Protocol PRN Reason: Hypoglycemia Glipizide (Glipizide 10 Mg Tab) 10 mg PO DAILY [facility] Last Admin: 03/05/23 09:02 Dose: 10 mg Ferric Sodium Gluconate 125 mg (/ Sodium Chloride) 110 mls @ 100 mls/hr IVPB DAILY [facility] Stop: 03/07/23 10:05 Last Admin: 03/05/23 09:02 Dose: 100 mls/hr Insulin Aspart (Insulin Aspart (Novolog) 100 Unit/Ml Vial) 0 unit SQ AC-TID [facility]; Protocol Last Admin: 03/05/23 12:06 Dose: 2 unit Isosorbide Mononitrate (Isosorbide Mononitrate Er 60 Mg Tab.Er.24h) 60 mg PO DAILY [facility] Last Admin: 03/05/23 09:02 Dose: 60 mg Levothyroxine Sodium (Levothyroxine 50 Mcg Tab) 50 mcg PO DAILY@0630 [facility] Last Admin: 03/05/23 06:38 Dose: 50 mcg Losartan Potassium (Losartan 50 Mg Tab) 50 mg PO [facility] Last Admin: 03/04/23 21:56 Dose: 50 mg Metformin HCl (Metformin 500 Mg Tab) 1,000 mg PO BID [facility] Last Admin: 03/05/23 09:02 Dose: 1,000 mg Multivitamins (Multivitamins, Thera 1 Each Tab) 1 each PO DAILY [facility] Last Admin: 03/05/23 09:02 Dose: 1 each Naloxone HCl (Naloxone 0.4 Mg/Ml 1 Ml Vial) 0.2 mg IV Q2M PRN PRN Reason: Opioid Reversal Solifenacin Succinate [ Solifenacin Succinate] 5 Mg Tablet 5 mg PO [facility] Last Admin: 03/04/23 21:56 Dose: Not Given Pantoprazole Sodium (Pantoprazole 40 Mg/10 Ml Vial) 40 mg IVP BID [facility] Last Admin: 03/05/23 09:02 Dose: 40 mg Paroxetine HCl (Paroxetine 20 Mg Tab) 20 mg PO DAILY [facility] Last Admin: 03/05/23 09:02 Dose: 20 mg Tamsulosin HCl (Tamsulosin 0.4 Mg Cap.Er.24h) 0.4 mg PO [facility] Last Admin: 03/04/23 21:55 Dose: 0.4 mg Zolpidem Tartrate (Zolpidem 5 Mg Tab) 10 mg PO [facility] Last Admin: 03/04/23 21:55 Dose: 10 mg Past medical history to include: Diabetes, hypertension, hyperlipidemia, CAD with stent, depression, Social history: Lives alone. She smoked for about 30 years stopped in 2000. Alcohol occasionally. 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 Physical examination: VITAL SIGNS: 98, 71, 18, 114/61, 100% on 2 L GENERAL: BMI 31.7, sitting in the bed.. EYES: Pupils equal. Conjunctiva palel. HEENT: External appearance of nose and ears normal, oral cavity grossly normal. NECK: JVD not raised; masses not palpable. HEART: First and second heart sounds are normal; mild edema. LUNGS: Respiratory rate normal; decreased breath sounds. ABDOMEN: Soft, nontender, liver spleen not palpable, no masses palpable. PSYCH: Alert and oriented x3; mood and affect normal. MUSCULOSKELETAL:No Clubbing/cyanosis;muscles-grossly intact. OA INVESTIGATIONS, reviewed in the clinical context: Renal ultrasound: Corticomedullary differentiation is mentating. Some cortical scarring in the renal cortex on the left from prior injury. March 05: Hemoglobin 7.5 potassium 4.5 creatinine 1.19 March 04: WBC 7.5 hemoglobin 6.7 platelets 4:30 Iron 14 TIBC 399% saturation 3.51 transferred and 25 ferritin 7.3 B12 297 folate 22.5 EKG tracing personally reviewed by me-no sinus rhythm. PVC Chest x-ray film personally reviewed by me-cardiomegaly lung mcdowell clear. March 03: Hemoglobin 7.3 platelets 404 sodium 137 potassium 4.5 BUN 45 creatinine 1.26 UA leukoesterase large. WBC 105 blood trace 01/28/2023: Hemoglobin 9.1 01/20/2023: Creatinine 1.4 Assessment and plan: -Acute severe anemia. Symptomatic. Patient about a week ago receive 2 units of blood. Received 1 unit of blood yesterday. Getting 1 unit this morning. No outward bleeding noted. Patient did have a prostatectomy about 2 weeks ago. That'll account for some blood loss. Hemolysis to be ruled out. GI source to be ruled out. Pending upper lower GI endoscopy. Tomorrow Follow with GI and hematology. -Severe iron deficiency anemia Rule out GI cause. -Diabetes mellitus type 2, on oral hypoglycemic Follow Accu-Cheks with sliding scale -CAD with a prior history of stent. Patient had a cardiac catheterization 3 weeks ago. No intervention. Cozaar, Plavix, Lipitor, aspirin, Coreg -Chronic insomnia Ambien -Stage II CK D, possibly nephrosclerosis Creatinine 1.4 on 01/20/2023. Renal ultrasound unremarkable -Bladder outflow obstruction, status post prostatectomy 2 weeks ago Flomax -Anxiety depression Paxil -Essential hypertension Cozaar, Coreg -Hypothyroid Synthroid -COPD in a previous smoker Advair -Hyperlipidemia Lipitor -Full code Continue current treatment plan. For upper and lower endoscopy tomorrow.
--- NOTE | 2023-03-05 14:20 | CDI ---
Documentation Clarification Form Date: 03/05/2023 02:04:18 PM From: Fe Banda RN CCDS Phone: [phone] Admit Date: 03/03/2023 05:49:00 PM Patient Name: Efrain Grady Visit Number: [id number] Discharge Date: ATTENTION: The Clinical Documentation Specialists (CDI) and [facility] Coding Staff appreciate your assistance in clarifying documentation. Please respond to the clarification below the line at the bottom and electronically sign. The CDI & [facility] Coding staff will review the response and follow-up if needed. Please note: Queries are made part of the Legal Health Record. If you have any questions, please contact the author of this message via ITS. Dr. Marcio Dodge Your patient has the documented diagnosis of unspecified CHF 03/03, ED note and 03/04, GI consult. Additional information regarding the type, acuity of CHF is requested. History/Risk Factors: 67-year-old male was in the parking lot at [facility] and became short of breath. The patient was found to be significantly anemic with a hemoglobin of 6.6. Also had edema. Medical History: DM, HTN, HLD, CAD with stent and depression. H&P, 03/04. Clinical Indicators: Home Medications, 03/03: Carvedilol 12mg PO Daily; Spironolactone 25mg PO Daily; Imdur 60mg PO Daily; Lasix 40mg PO Daily; VS/Pulse OX: BNP, 03/03: 1530 Chest X Ray, 03/04: questionable left upper lung nodularity with prominence of the right hilar region. GI consult, 03/04: Patient had some complaints of dizziness and has had some shortness of breath he was noted to have elevated BNP with a known history of CHF ED note, 03/03: Symptomatic anemia, CHF Treatment: 03/04 Coreg 6.25mg PO BID; 03/04 Imdur 60mg PO Daily; In your professional opinion, can you please clarify the acuity and type of CHF if known? [ ] Acute Systolic Heart Failure (reduced EF) [ ] Chronic Systolic Heart Failure (reduced EF) [ ] Acute on Chronic Systolic Heart Failure (reduced EF) [ ] Acute Diastolic Heart Failure (preserved EF) [ ] Chronic Diastolic Heart Failure (preserved EF) [ ] Acute on Chronic Diastolic Heart Failure (preserved EF) [ ] Acute Systolic & Diastolic Heart Failure [ ] Chronic Systolic & Diastolic Heart Failure [ ] Acute on Chronic Heart Failure Systolic & Diastolic Heart Failure [ ] Other, please specify [ + ] Unable to determine (Template Last Revised: October 2020) MTDD
--- NOTE | 2023-03-05 16:14 | P.PN ---
Subjective Progress Note Date: 03/05/23 Principal diagnosis: Anemia This is a pleasant 67-year-old male who had presented to [facility] with complaints of dizziness and recheck on labs. He was recently found to be anemic and received 2 units of blood last week at outside facility. He has a history of coronary artery disease status post stents, diabetes mellitus, hypertension, hyperlipidemia, chronic anemia, and recent TURP. He states following his surgery had a significant amount of bloody urine procedure was done on 01/28/2023. Patient does take aspirin and Plavix for coronary artery disease, denies any anticoagulation use or NSAID use. He was found to have a hemoglobin of 6.6 at [facility] was given 1 unit of blood and transferred to [facility] for further workup. Apparently patient also had a stool that was negative for occult blood. Gastroenterology was consulted for anemia. Patient denies any blood in his stool or black stool, denies any history of GI bleed. Denies any history of peptic ulcer disease, GERD, or epigastric pain. His last colonoscopy was with Dr. Castle and June 2019 that reported a normal colon. He believes he may have had an EGD in the past as well several years ago. Patient states he used to take iron however he stopped taking it and then restarted about one week ago. On admission he was noted to have a elevated BNP consistent with congestive heart failure. He does state that he does have a history of CHF. He reports that he is still having some difficulty with breathing and shortness of breath, denies any chest pain, abdominal pain, nausea, vomiting, fever or chills. Patient had a drop in his hemoglobin this morning to 6.7. One unit of blood as ordered. Patient is currently on 2 L of nasal cannula. Admitting Labs WBC 8.8 hemoglobin 7.3 hematocrit 23.6 platelet count 484,000 INR 1.2 sodium 137 potassium 4.5 BUN of 45 creatinine 1.26 total bilirubin 0.7 AST 21 ALT 22 alkaline phosphatase 75 a trace of blood and urine. 03/05/2023 Patient was seen and examined today as a follow-up. He is without any acute changes. He denies any blood in his stool or black stool Still has 2 L oxygen per nasal cannula with saturations of 97-100%. He denies any chest pain or shortness of breath. He received 1 unit of blood yesterday with a repeat hemoglobin of 8.1. This morning's labs hemoglobin 7.5. He received IV iron today. Denies any abdominal pain, nausea or vomiting. Objective - Vital Signs Vital signs: Vital Signs Temp 98.0 F 03/05/23 08:00 Pulse 71 03/05/23 14:00 Resp 18 03/05/23 14:00 BP 114/61 03/05/23 11:39 Pulse Ox 100 03/05/23 11:39 FiO2 Intake & Output 03/04/23 03/05/23 03/05/23 18:59 06:59 18:59 Intake Total 1610 20 474 Balance 1610 20 474 Weight 100.1 kg Intake: IV 20 20 Invasive Line 1 20 20 Oral 1280 474 Blood Product 310 Rc As-1 Unit 310 [id number] Other: Voiding Method Toilet Toilet Toilet Urinal Urinal Urinal # Voids 1 2 - Exam General appearance: The patient is alert, oriented, appears in no acute distress. HET: Head is normocephalic and atraumatic. Conjunctiva pink. Sclera anicteric. Neck: Supple without lymphadenopathy. Abdomen: Soft, nontender, nondistended with bowel sounds. No guarding or rigidity. Extremities: Normal skin color and turgor. No pedal edema Skin: No rashes, no jaundice Neurological: No focal deficits. Alert and oriented. - Labs CBC & Chem 7: 03/05/23 07:55 03/05/23 07:55 Labs: Abnormal Lab Results - Last 24 Hours (Table) 03/04/23 03/04/23 03/05/23 Range/Units 17:48 20:11 06:02 RBC 3.36 L (4.30-5.90) m/uL Hgb 8.1 L (13.0-17.5) gm/dL Hct 26.3 L (39.0-53.0) % MCV 78.4 L (80.0-100.0) fL MCH 24.2 L (25.0-35.0) pg MCHC 30.8 L (31.0-37.0) g/dL RDW 17.4 H (11.5-15.5) % Plt Count 459 H (150-450) k/uL BUN (9-20) mg/dL Glucose (74-99) mg/dL POC Glucose (mg/dL) 183 H 184 H (70-110) mg/dL Hemoglobin A1c (<=6.0) % 03/05/23 03/05/23 03/05/23 Range/Units 07:55 07:55 07:55 RBC 3.29 L (4.30-5.90) m/uL Hgb 7.5 L (13.0-17.5) gm/dL Hct 25.8 L (39.0-53.0) % MCV 78.5 L (80.0-100.0) fL MCH 22.9 L (25.0-35.0) pg MCHC 29.2 L (31.0-37.0) g/dL RDW 17.2 H (11.5-15.5) % Plt Count (150-450) k/uL BUN 28 H (9-20) mg/dL Glucose 171 H (74-99) mg/dL POC Glucose (mg/dL) (70-110) mg/dL Hemoglobin A1c 6.4 H (<=6.0) % 03/05/23 Range/Units 11:33 RBC (4.30-5.90) m/uL Hgb (13.0-17.5) gm/dL Hct (39.0-53.0) % MCV (80.0-100.0) fL MCH (25.0-35.0) pg MCHC (31.0-37.0) g/dL RDW (11.5-15.5) % Plt Count (150-450) k/uL BUN (9-20) mg/dL Glucose (74-99) mg/dL POC Glucose (mg/dL) 159 H (70-110) mg/dL Hemoglobin A1c (<=6.0) % Assessment and Plan (1) Microcytic hypochromic anemia Narrative/Plan: 67-year-old who presented with microcytic hypochromic anemia with a known history of chronic anemia who was previously on iron and stopped with a recent restart one week ago. Patient underwent TURP on 01/28/2023 for BPH and urinary retention at that time preop blood work did show hemoglobin 9.1. Patient states he had a significant amount of gross hematuria post procedure. Patient had some complaints of dizziness and has had some shortness of breath he was noted to have elevated BNP with a known history of CHF. Was initially seen on outside facility and found to have a hemoglobin of 6.6 given 2 units of blood at that time. Denies any signs or symptoms of GI bleed. No previous history of GI bleed. Patient does have a history of coronary artery disease on aspirin and Plavix. Last colonoscopy in 2019 with a normal colon. Unclear etiology at this time of anemia, could likely be related to post procedure TURP with a known history of chronic anemia. Recommend continuing iron, will transfuse for hemoglobin of 6.7. Need to consider GI source of blood source especially as she is on dual antiplatelet for coronary artery disease and stenting. At this time patient still having shortness of breath last taken aspirin and Plavix yesterday in 03/03/2023. We'll plan to proceed with EGD and colonoscopy tomorrow. Bowel prep this afternoon. Current Visit: Yes Status: Acute Code(s): D50.9 - IRON DEFICIENCY ANEMIA, UNSPECIFIED SNOMED Code(s): 89769462 (2) CHF (congestive heart failure) Current Visit: Yes Status: Acute Code(s): I50.9 - HEART FAILURE, UNSPECIFIED SNOMED Code(s): 42408805 (3) Coronary artery disease Current Visit: Yes Status: Acute Code(s): I25.10 - ATHSCL HEART DISEASE OF [place] CORONARY ARTERY W/O ANG PCTRS SNOMED Code(s): 19320665 (4) Diabetes mellitus Current Visit: Yes Status: Acute Code(s): E11.9 - TYPE 2 DIABETES MELLITUS WITHOUT COMPLICATIONS SNOMED Code(s): 98520394 (5) S/P TURP (status post transurethral resection of prostate) Narrative/Plan: Done on 01/28/2023 Current Visit: Yes Status: Acute Code(s): Z90.79 - ACQUIRED ABSENCE OF OTHER GENITAL ORGAN(S) SNOMED Code(s): 694487422 (6) Chronic anemia Current Visit: Yes Status: Acute Code(s): D64.9 - ANEMIA, UNSPECIFIED SNOMED Code(s): 687112319 Plan: 1. Continue symptomatic and supportive care 2. Continue to hold aspirin and Plavix 3. Anemia workup ordered, consistent with iron deficiency anemia 4. Protonix 40 mg daily 5. Daily CBC transfuse for hemoglobin less than 7 6. IV iron ordered daily 3 7. Clear liquid diet, nothing by mouth after midnight 8. Bowel prep this afternoon 9. Patient scheduled for EGD colonoscopy tomorrow Thank you for this consultation, we will continue to follow. Dr. Lester Kelly I agree with the dictator's note, documented as a scribe by Matilde Noyola.
[2023-03-05 16:50] LABS: Glucose,Whole Blood 72 mg/dL (70-110)
[2023-03-05 20:10] LABS: Glucose,Whole Blood 119 mg/dL (70-110)
[2023-03-05] MEDS: LOSARTAN 50 MG TAB PO SCH (20:25)
[2023-03-05] MEDS: ATORVASTATIN 80 MG TAB PO SCH (20:25)
[2023-03-05] MEDS: TAMSULOSIN 0.4 MG CAP.ER.24H PO SCH (20:25)
[2023-03-05] MEDS: ZOLPIDEM 5 MG TAB PO SCH (20:25)
[2023-03-05] MEDS: SOLIFENACIN SUCCINATE 5 MG PO SCH (20:26)
--- NOTE | 2023-03-06 00:15 | P.CONS ---
History of Present Illness - Reason for Consult Consult date: 03/05/23 anemia Requesting physician: Marcio Dodge - Chief Complaint dizzy and SOB - History of Present Illness Patient is a 67-year-old male with a significant history of diabetes, hypertension, and hyperlipidemia. We were consulted for anemia. Patient had a TURP procedure 1 month ago and reports having hematuria at that time which has subsequently resolved. In early January patient also went underwent a cardiac catherization with no interventjon. Patient is on dual antiplatelet treatment with aspirin and Plavix for history of CAD and cardiac stents. Plavix and aspirin has been held due to symptomatic anemia. Patient reports over the last couple days he has been feeling increased dizziness and lightheadedness with associated shortness of breath. Patient was transferred from [facility] for further evaluation. He was found to have a hemoglobin of 6.6 and was given 1 unit of PRBCs. Of note patient also received 2 units of PRBCs last week outpatient. Patient denies use of NSAIDs. Denies blood in stool and melena. Denies history of previous blood transfusions. Patient reports he had a colonoscopy and EGD 2 years ago which was normal. Patient has received 1 additional unit of PRBCs on 03/04 for hemoglobin of 6.7. Today, hemoglobin 8.1, platelets 459,000. CBC is consistent with microcytic hyperchromic anemia. Iron studies revealed iron of 14, iron saturation 3.5%, ferritin 7.3. Vitamin B12 297, folate 22.5. Parenteral iron ordered x3 doses. GI consulted for endoscopic evaluation Review of Systems 10 point ROS is negative except as stated in the HPI Past Medical History Past Medical History: Diabetes Mellitus, Hyperlipidemia, Hypertension, Myocardial Infarction (MD), Thyroid Disorder Last Myocardial Infarction Date:: 2000 History of Any Multi-Drug Resistant Organisms: None Reported Past Surgical History: Heart Catheterization With Stent, Hernia Repair Additional Past Surgical History / Comment(s): COLONOSCOPY Past Anesthesia/Blood Transfusion Reactions: No Reported Reaction Additional Past Anesthesia/Blood Transfusion Reaction / Comm: WAS SLOW TO WAKE UP AFTER HERNIA SX Date of Last Stent Placement:: 2000,2014,2022 Past Psychological History: Depression Smoking Status: Never smoker Past Alcohol Use History: Occasional Additional Past Alcohol Use History / Comment(s): QUIT SMOKING 2000 Past Drug Use History: None Reported - Past Family History Mother Family Medical History: No Reported History Medications and Allergies Home Medications Medication Instructions Recorded Confirmed Type Insulin NPH Hum/Reg Insulin Hm 10 unit SQ PC-BID 07/07/19 03/03/23 History [Novolin 70-30 100 Unit/ml Vial] Isosorbide Mononitrate ER [Imdur] 60 mg PO DAILY 07/07/19 03/03/23 History Levothyroxine Sodium [Synthroid] 50 mcg PO DAILY 07/07/19 03/03/23 History PARoxetine [Paxil] 20 mg PO DAILY 07/07/19 03/03/23 History Zolpidem [Ambien] 10 mg PO HS 07/07/19 03/03/23 History metFORMIN HCL [Glucophage] 1,000 mg PO BID 07/07/19 03/03/23 History Aspirin [Adult Low Dose Aspirin EC] 81 mg PO DAILY 01/24/23 03/03/23 History Atorvastatin [Lipitor] 80 mg PO HS 01/24/23 03/03/23 History Clopidogrel [Plavix] 75 mg PO DAILY 01/24/23 03/03/23 History Furosemide [Lasix] 40 mg PO DAILY 01/24/23 03/03/23 History Losartan [Cozaar] 50 mg PO HS 01/24/23 03/03/23 History Multivitamins, Thera [Multivitamin 1 tab PO DAILY 01/24/23 03/03/23 History (formulary)] Potassium Chloride ER [K-Dur 10] 10 meq PO DAILY 01/24/23 03/03/23 History Solifenacin Succinate 5 mg PO HS 01/24/23 03/03/23 History Spironolactone 25 mg PO DAILY 01/24/23 03/03/23 History Tamsulosin [Flomax] 0.4 mg PO HS 01/24/23 03/03/23 History carvediloL 12.5 mg PO DAILY 01/24/23 03/03/23 History Ferrous Sulfate [Iron (65 MG 325 mg PO DAILY 03/03/23 03/03/23 History Elemental)] Fluticasone Propion/Salmeterol 1 puff INHALATION RT-BID 03/03/23 03/03/23 His tory [Advair 250-50 Diskus] glipiZIDE [Glucotrol] 10 mg PO DAILY 03/03/23 03/03/23 History Allergies Allergy/AdvReac Type Severity Reaction Status Date / Time No Known Allergies Allergy Verified 03/03/23 18:18 Physical Exam Vitals: Vital Signs Temp Pulse Resp BP Pulse Ox 03/05/23 14:00 71 18 03/05/23 11:39 71 18 114/61 100 03/05/23 08:00 98.0 F 83 18 104/58 97 03/05/23 04:00 97.6 F 71 18 147/76 97 03/05/23 02:00 73 18 03/05/23 00:00 98.2 F 73 18 129/78 96 03/04/23 20:00 97.8 F 75 18 157/82 99 03/04/23 16:14 75 18 100/68 97 Intake and Output 03/05/23 03/05/23 03/05/23 06:59 14:59 22:59 Intake Total 10 474 Balance 10 474 Intake: IV 10 Invasive Line 1 10 Oral 474 Other: Voiding Method Toilet Toilet Urinal Urinal # Voids 2 Weight 100.1 kg - Constitutional General appearance: average body habitus, no acute distress - EENT Eyes: anicteric sclerae, EOMI ENT: hearing grossly normal - Respiratory Respiratory: bilateral: CTA - Cardiovascular Rhythm: regular Heart sounds: normal: S1, S2 Abnormal Heart Sounds: no systolic murmur, no diastolic murmur, no rub, no S3 Gallop, no S4 Gallop, no click, no other - Gastrointestinal General gastrointestinal: soft, no tenderness - Integumentary Integumentary: no cyanotic, no rash - Neurologic Neurologic: CNII-XII intact - Musculoskeletal Musculoskeletal: strength equal bilaterally - Psychiatric Psychiatric: A&O x's 3, appropriate affect, intact judgment & insight Results CBC & Chem 7: 03/05/23 07:55 03/05/23 07:55 Labs: Abnormal Lab Results - Last 24 Hours (Table) 03/04/23 03/04/23 03/05/23 Range/Units 17:48 20:11 06:02 RBC 3.36 L (4.30-5.90) m/uL Hgb 8.1 L (13.0-17.5) gm/dL Hct 26.3 L (39.0-53.0) % MCV 78.4 L (80.0-100.0) fL MCH 24.2 L (25.0-35.0) pg MCHC 30.8 L (31.0-37.0) g/dL RDW 17.4 H (11.5-15.5) % Plt Count 459 H (150-450) k/uL BUN (9-20) mg/dL Glucose (74-99) mg/dL POC Glucose (mg/dL) 183 H 184 H (70-110) mg/dL Hemoglobin A1c (<=6.0) % 03/05/23 03/05/23 03/05/23 Range/Units 07:55 07:55 07:55 RBC 3.29 L (4.30-5.90) m/uL Hgb 7.5 L (13.0-17.5) gm/dL Hct 25.8 L (39.0-53.0) % MCV 78.5 L (80.0-100.0) fL MCH 22.9 L (25.0-35.0) pg MCHC 29.2 L (31.0-37.0) g/dL RDW 17.2 H (11.5-15.5) % Plt Count (150-450) k/uL BUN 28 H (9-20) mg/dL Glucose 171 H (74-99) mg/dL POC Glucose (mg/dL) (70-110) mg/dL Hemoglobin A1c 6.4 H (<=6.0) % 03/05/23 Range/Units 11:33 RBC (4.30-5.90) m/uL Hgb (13.0-17.5) gm/dL Hct (39.0-53.0) % MCV (80.0-100.0) fL MCH (25.0-35.0) pg MCHC (31.0-37.0) g/dL RDW (11.5-15.5) % Plt Count (150-450) k/uL BUN (9-20) mg/dL Glucose (74-99) mg/dL POC Glucose (mg/dL) 159 H (70-110) mg/dL Hemoglobin A1c (<=6.0) % Chest x-ray: report reviewed Assessment and Plan (1) Symptomatic anemia Current Visit: Yes Status: Acute Priority: High Code(s): D64.9 - ANEMIA, UNSPECIFIED SNOMED Code(s): 421833323 Plan: Iron deficiency anemia: -Patient was transferred from [facility] for further evaluation and an emia. He was found to have a hemoglobin of 6.6 and was given 1 unit of PRBCs prior to arrival. Patient also reports receiving 2 units of PRBCs last week outpatient. Denies blood in stool and melena. Denies history of previous blood transfusions. Patient reports he had a colonoscopy and EGD 2 years ago which was normal. -Patient has received 1 additional unit of PRBCs on 03/04 for hemoglobin of 6.7. Today, hemoglobin stable, 8.1, platelets 459,000. ASA and plavix has been held -CBC is consistent with microcytic hyperchromic anemia. Iron studies revealed iron of 14, iron saturation 3.5%, ferritin 7.3. Vitamin B12 297, folate 22.5. Parenteral iron ordered x3 doses. MMA and copper ordered. Anemia likely r/t GI bleed exacerbated by dual antiplatelet therapy -GI consulted for endoscopic evaluation -Will continue to monitor counts. Please transfuse for hemoglobin less than 7 attests: I have performed H&P and developed impression and plan of care for patient, discussed with dictator. I agree with dictated note, documented as a scribe
[2023-03-06] MEDS: LEVOTHYROXINE 50 MCG TAB PO SCH (05:12)
[2023-03-06] MEDS: INSULIN ASPART (NovoLOG) 100 UNIT/ML VIAL SQ SCH ×4 (05:12→20:07)
[2023-03-06 06:06] LABS: Glucose,Whole Blood 147 mg/dL (70-110)
[2023-03-06 07:27] LABS: Anisocytosis Slight; HCT 24.5 % (39.0-53.0); HGB 7.5 gm/dL (13.0-17.5); Hypochromasia Marked; MCH 23.8 pg (25.0-35.0); MCHC 30.5 g/dL (31.0-37.0); MCV 77.8 fL (80.0-100.0); Mean Platelet Volume 6.8; Microcytosis Slight; Platelet Count 382 k/uL (150-450); Poikilocytosis Moderate; RBC 3.15 m/uL (4.30-5.90); RDW 17.9 % (11.5-15.5); WBC 6.7 k/uL (3.8-10.6)
[2023-03-06 07:48] LABS: African American GFR (CKD) 86 (>60 ml/min/1.73 sqM); Anion Gap 5 mmol/L; Blood Urea Nitrogen 22 mg/dL (9-20); Calcium 8.3 mg/dL (8.4-10.2); Carbon Dioxide 27 mmol/L (22-30); Chloride 105 mmol/L (98-107); Glucose 129 mg/dL (74-99); Non-African American GFR(CKD) 74 (>60 ml/min/1.73 sqM); Potassium 4.4 mmol/L (3.5-5.1); Sodium 137 mmol/L (137-145)
[2023-03-06] MEDS: PANTOPRAZOLE 40 MG/10 ML VIAL IVP SCH ×2 (08:20→20:06)
[2023-03-06] MEDS: SODIUM FERRIC GLUCONAT-SUCROSE 125 MG in SODIUM CHLORIDE 0.9% 100 ML IVPB SCH (08:21)
[2023-03-06] MEDS: SYMBICORT 80-4.5 MCG INHALER INHALATION SCH ×2 (08:38→21:18)
[2023-03-06 11:20] LABS: Glucose,Whole Blood 157 mg/dL (70-110)
[2023-03-06] MEDS: metFORMIN 500 MG TAB PO SCH ×2 (12:42→20:06)
[2023-03-06] MEDS: carvediloL 6.25 MG TAB PO SCH ×2 (12:42→20:06)
--- NOTE | 2023-03-06 14:50 | P.PCN ---
Date of Procedure: 03/06/23 Procedure(s) Performed: Brief history: Patient is a pleasant 67-year-old white male admitted hospital with symptomatic anemia and hemoglobin of 7 g/dL. Iron indices were consistent with iron deficiency anemia. He is scheduled for an elective upper endoscopy as well as colonoscopy as a part of evaluation of iron deficiency anemia Procedure performed: Esophagogastroduodenoscopy with biopsy Colonoscopy with biopsy Preoperative diagnosis: Iron deficiency anemia Anesthesia: [facility] Procedure: After informed consent was obtained from the patient was brought into the endoscopy unit and IV sedation was administered by anesthesia under continuous monitoring. Initially upper endoscopy was done. The Olympus GF 160 video endoscope was inserted inserted into the mouth and esophagus intubated without any difficulty and was gradually advanced into the stomach and duodenum and carefully examined. The bulb and second part of the duodenum appeared normal. The scope was then withdrawn into the stomach adequately insufflated with air and upon careful examination the antrum had mild gastritis and biopsies were done from this area. Mucosa of the body, cardia and fundus appeared normal. The scope was then withdrawn into the esophagus. The GE junction was located at 40 cm to the incisors. It appeared regular with no erythema erosions or ulcerations. Rest of the esophagus appeared normal. Patient tolerated the procedure well. At this time the patient continued to remain sedation. Initial digital rectal examination was normal. Olympus CF 160 video colonoscope was then inserted into the rectum and gradually advanced to the cecum without any difficulty. Careful examination was performed as the scope was gradually being withdrawn. The prep was excellent. The cecum, ascending colon, transverse colon, descending colon, sigmoid colon and rectum appeared normal. In the rectum there was a 3 mm polyp that was removed by cold biopsy. Retroflexion was performed in the rectum and small internal hemorrhoids were noted. Patient tolerated the procedure well. Impression: 1. Upper endoscopy revealed mild antral gastritis but no evidence of esophagitis or peptic ulcer disease 2. Colonoscopy revealed 3 mm rectal polyp status post biopsy and small internal hemorrhoids Recommendations: Findings of this examination were discussed with the patient .at this time will await biopsy results. Start iron supplements. Advance to regular diet. Follow up in office in 2 weeks. He continues to have persistent iron deficiency anemia will consider small bowel capsule endoscopy as outpatient basis
[2023-03-06] MEDS ORDERED: SODIUM CHLORIDE 0.9% 500 ML 500 ML IV ONE (14:51)
--- NOTE | 2023-03-06 15:10 | P.PN ---
Subjective Progress Note Date: 03/06/23 Principal diagnosis: Anemia At today's visit patient is resting comfortably in bed. Patient reports feeling well. Patient denies shortness of breath. Denies any episodes of bleeding. Objective - Vital Signs Vital signs: Vital Signs Temp 97.8 F 03/06/23 11:26 Pulse 82 03/06/23 11:26 Resp 18 03/06/23 11:26 BP 133/65 03/06/23 11:26 Pulse Ox 98 03/06/23 11:26 FiO2 Intake & Output 03/05/23 03/06/23 03/06/23 18:59 06:59 18:59 Intake Total 592 450 Balance 592 450 Weight 101.2 kg Intake: IV 450 Oral 592 0 Other: Voiding Method Toilet Toilet Toilet Urinal Urinal # Voids 1 - Constitutional General appearance: Present: average body habitus, no acute distress - EENT Eyes: Present: anicteric sclerae, EOMI ENT: Present: hearing grossly normal - Respiratory Details: breathing is even and unlabored - Cardiovascular Details: skin warm and dry - Integumentary Integumentary: Present: pale. Absent: cyanotic - Neurologic Neurologic: Present: CNII-XII intact - Musculoskeletal Musculoskeletal: Present: strength equal bilaterally - Psychiatric Psychiatric: Present: A&O x's 3, appropriate affect, intact judgment & insight - Labs CBC & Chem 7: 03/06/23 06:27 03/06/23 06:27 Labs: Abnormal Lab Results - Last 24 Hours (Table) 03/05/23 03/05/23 03/06/23 Range/Units 07:55 20:08 05:50 RBC (4.30-5.90) m/uL Hgb (13.0-17.5) gm/dL Hct (39.0-53.0) % MCV (80.0-100.0) fL MCH (25.0-35.0) pg MCHC (31.0-37.0) g/dL RDW (11.5-15.5) % BUN (9-20) mg/dL Glucose (74-99) mg/dL POC Glucose (mg/dL) 119 H 147 H (70-110) mg/dL Hemoglobin A1c 6.4 H (<=6.0) % Calcium (8.4-10.2) mg/dL 03/06/23 03/06/23 03/06/23 Range/Units 06:27 06:27 11:18 RBC 3.15 L (4.30-5.90) m/uL Hgb 7.5 L (13.0-17.5) gm/dL Hct 24.5 L (39.0-53.0) % MCV 77.8 L (80.0-100.0) fL MCH 23.8 L (25.0-35.0) pg MCHC 30.5 L (31.0-37.0) g/dL RDW 17.9 H (11.5-15.5) % BUN 22 H (9-20) mg/dL Glucose 129 H (74-99) mg/dL POC Glucose (mg/dL) 157 H (70-110) mg/dL Hemoglobin A1c (<=6.0) % Calcium 8.3 L (8.4-10.2) mg/dL Assessment and Plan (1) Symptomatic anemia Current Visit: Yes Status: Acute Priority: High Code(s): D64.9 - ANEMIA, UNSPECIFIED SNOMED Code(s): 755571586 Plan: Iron deficiency anemia: -Patient was transferred from [facility] for further evaluation and anemia. He was found to have a hemoglobin of 6.6 and was given 1 unit of PRBCs prior to arrival. Patient also reports receiving 2 units of PRBCs last week outpatient. Denies blood in stool and melena. Denies history of previous blood transfusions. Patient reports he had a colonoscopy and EGD 2 years ago which was normal. -Patient has received 1 additional unit of PRBCs on 03/04 for hemoglobin of 6.7. Today, hemoglobin 7.5, platelets 382,000. ASA and plavix has been held -CBC is consistent with microcytic hyperchromic anemia. Iron studies revealed iron of 14, iron saturation 3.5%, ferritin 7.3. Vitamin B12 297, folate 22.5. Parenteral iron ordered x3 doses. Patient will be scheduled outpt for 2 doses of feraheme. MMA and copper pending. Anemia likely r/t GI bleed exacerbated by dual antiplatelet therapy -GI consulted for endoscopic evaluation. EGD and colonoscopy performed today with Dr. Kelly revealing mild antral gastritis but no evidence of esophagitis or peptic ulcer disease. Colonoscopy revealed 3 mm rectal polyp status post biopsy and small internal hemorrhoids. Patient will follow-up outpatient and if he is having persisting iron deficiency anemia they will consider small bowel capsule. -Will continue to monitor counts. Please transfuse for hemoglobin less than 7
[2023-03-06] MEDS: MULTIVITAMINS, THERA 1 EACH TAB PO SCH (15:26)
[2023-03-06] MEDS: glipiZIDE 10 MG TAB PO SCH (15:26)
[2023-03-06] MEDS: ISOSORBIDE MONONITRATE ER 60 MG TAB.ER.24H PO SCH (15:26)
[2023-03-06] MEDS: PARoxetine 20 MG TAB PO SCH (15:26)
--- NOTE | 2023-03-06 16:13 | P.PN ---
Progress Note - Text Progress Note Date: 03/06/23 Chief Complaint: Dizzy This is a pleasant 67-year-old patient follows with Dr. Guzman. 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 Chronic stable medical conditions include diabetes, hypertension, hyperlipidemia, hypothyroid. Patient underwent prostatectomy by Dr. stewart about 3 weeks ago. A week prior to that patient cardiac catheterization. No intervention. Previously patient's had stents placed. Patient does go to rehab at [facility] Friday and Wednesdays. For last couple days patient being feeling more dizzy and lightheaded. When patient was in the parking lot at [facility]. Became more short of breath. Had to be helped inside the hospital. Found to be significantly anemic with a hemoglobin of 6.6. A week prior patient had a similar episode. Was found to be anemic and had to be given 2 units of blood. Patient does not remember having black stools. Also had edema March 05: No external evidence of bleeding. Breathing better. Due for upper and lower GI endoscopy tomorrow. Clear liquid diet. Feeling better. March 06: Patient was seen this morning... Nothing by mouth. Showed mild antral gastritis. And a rectal polyp. Biopsy done. If further drop in hemoglobin that outpatient small bowel capsule endoscopy. Repeat CBC in the morning. Active Medications Acetaminophen (Acetaminophen Tab 325 Mg Tab) 650 mg PO Q6HR PRN PRN Reason: Mild Pain or Fever > 100.5 Atorvastatin Calcium (Atorvastatin 80 Mg Tab) 80 mg PO HS [facility] Last Admin: 03/05/23 20:25 Dose: 80 mg Budesonide/Formoterol Fumarate (Symbicort 80-4.5 Mcg Inhaler) 2 puff INHALATION RT-BID [facility] Last Admin: 03/06/23 08:38 Dose: 2 puff Carvedilol (Carvedilol 6.25 Mg Tab) 6.25 mg PO BID [facility] Last Admin: 03/06/23 12:42 Dose: Not Given Dextrose/Water (Dextrose 50% Syringe 50 Ml) 25 ml IVP PER PROTOCOL PRN; Protocol PRN Reason: Hypoglycemia Dextrose/Water (Dextrose 50% Syringe 50 Ml) 50 ml IVP PER PROTOCOL PRN; Protocol PRN Reason: Hypoglycemia Glipizide (Glipizide 10 Mg Tab) 10 mg PO DAILY [facility] Last Admin: 06/15/23 15:26 Dose: 10 mg Ferric Sodium Gluconate 125 mg (/ Sodium Chloride) 110 mls @ 100 mls/hr IVPB DAILY [facility] Stop: 03/07/23 10:05 Last Admin: 03/06/23 08:21 Dose: 100 mls/hr Insulin Aspart (Insulin Aspart (Novolog) 100 Unit/Ml Vial) 0 unit SQ AC-TID [facility]; Protocol Last Admin: 03/06/23 11:23 Dose: Not Given Isosorbide Mononitrate (Isosorbide Mononitrate Er 60 Mg Tab.Er.24h) 60 mg PO DAILY [facility] Last Admin: 03/06/23 15:26 Dose: 60 mg Levothyroxine Sodium (Levothyroxine 50 Mcg Tab) 50 mcg PO DAILY@0630 [facility] Last Admin: 03/06/23 05:12 Dose: Not Given Losartan Potassium (Losartan 50 Mg Tab) 50 mg PO HS [facility] Last Admin: 03/05/23 20:25 Dose: 50 mg Metformin HCl (Metformin 500 Mg Tab) 1,000 mg PO BID [facility] Last Admin: 03/06/23 12:42 Dose: Not Given Multivitamins (Multivitamins, Thera 1 Each Tab) 1 each PO DAILY [facility] Last Admin: 03/06/23 15:26 Dose: 1 each Naloxone HCl (Naloxone 0.4 Mg/Ml 1 Ml Vial) 0.2 mg IV Q2M PRN PRN Reason: Opioid Reversal Solifenacin Succinate [ Solifenacin Succinate] 5 Mg Tablet 5 mg PO HS [facility] Last Admin: 03/05/23 20:26 Dose: Not Given Pantoprazole Sodium (Pantoprazole 40 Mg/10 Ml Vial) 40 mg IVP BID [facility] Last Admin: 03/06/23 08:20 Dose: 40 mg Paroxetine HCl (Paroxetine 20 Mg Tab) 20 mg PO DAILY [facility] Last Admin: 03/06/23 15:26 Dose: 20 mg Tamsulosin HCl (Tamsulosin 0.4 Mg Cap.Er.24h) 0.4 mg PO [facility] Last Admin: 03/05/23 20:25 Dose: 0.4 mg Zolpidem Tartrate (Zolpidem 5 Mg Tab) 10 mg PO HS [facility] Last Admin: 03/05/23 20:25 Dose: 10 mg Past medical history to include: Diabetes, hypertension, hyperlipidemia, CAD with stent, depression, Social history: Lives alone. She smoked for about 30 years stopped in 2000. Alcohol occasionally. 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 Physical examination: VITAL SIGNS: 97.8, 82, 18, 133/65, 98% on 2 L GENERAL: BMI 31.7, sitting in the bed.. EYES: Pupils equal. Conjunctiva palel. HEENT: External appearance of nose and ears normal, oral cavity grossly normal. NECK: JVD not raised; masses not palpable. HEART: First and second heart sounds are normal; mild edema. LUNGS: Respiratory rate normal; decreased breath sounds. ABDOMEN: Soft, nontender, liver spleen not palpable, no masses palpable. PSYCH: Alert and oriented x3; mood and affect normal. MUSCULOSKELETAL:No Clubbing/cyanosis;muscles-grossly intact. OA INVESTIGATIONS, reviewed in the clinical context: March 06: White count 6.7 hemoglobin 7.5 potassium 4.4 creatinine 1.03 Renal ultrasound: Corticomedullary differentiation is mentating. Some cortical scarring in the renal cortex on the left from prior injury. March 05: Hemoglobin 7.5 potassium 4.5 creatinine 1.19 March 04: WBC 7.5 hemoglobin 6.7 platelets 4:30 Iron 14 TIBC 399% saturation 3.51 transferred and 25 ferritin 7.3 B12 297 folate 22.5 EKG tracing personally reviewed by me-no sinus rhythm. PVC Chest x-ray film personally reviewed by me-cardiomegaly lung mcdowell clear. March 03: Hemoglobin 7.3 platelets 404 sodium 137 potassium 4.5 BUN 45 creatinine 1.26 UA leukoesterase large. WBC 105 blood trace 01/28/2023: Hemoglobin 9.1 01/20/2023: Creatinine 1.4 Assessment and plan: -Acute severe anemia. Symptomatic. Patient about a week ago receive 2 units of blood. Received 1 unit of blood yesterday. Getting 1 unit this morning. No outward bleeding noted. Patient did have a prostatectomy about 2 weeks ago. That'll account for some blood loss. Hemolysis to be ruled out. EGD showed mild gastritis. Colonoscopy showed 3 mm rectal polyp. Plan is for small bowel capsule study if further drop in hemoglobin outpatient. -Severe iron deficiency anemia Endoscopy done. -Diabetes mellitus type 2, on oral hypoglycemic Follow Accu-Cheks with sliding scale -CAD with a prior history of stent. Patient had a cardiac catheterization 3 weeks ago. No intervention. Cozaar, Plavix, Lipitor, aspirin, Coreg -Chronic insomnia Ambien -Stage II CK D, possibly nephrosclerosis Creatinine 1.4 on 01/20/2023. Renal ultrasound unremarkable -Bladder outflow obstruction, status post prostatectomy 2 weeks ago Flomax -Anxiety depression Paxil -Essential hypertension Cozaar, Coreg -Hypothyroid Synthroid -COPD in a previous smoker Advair -Hyperlipidemia Lipitor -Full code February diet today. Check CBC tomorrow. Possible discharge tomorrow.
[2023-03-06 17:15] LABS: Glucose,Whole Blood 193 mg/dL (70-110)
[2023-03-06] MEDS: ATORVASTATIN 80 MG TAB PO SCH (20:06)
[2023-03-06] MEDS: TAMSULOSIN 0.4 MG CAP.ER.24H PO SCH (20:06)
[2023-03-06] MEDS: ZOLPIDEM 5 MG TAB PO SCH (20:06)
[2023-03-06] MEDS: LOSARTAN 50 MG TAB PO SCH (20:06)
[2023-03-06 20:07] LABS: Glucose,Whole Blood 273 mg/dL (70-110)
[2023-03-06] MEDS: SOLIFENACIN SUCCINATE 5 MG PO SCH (20:08)
[2023-03-07] MEDS: LEVOTHYROXINE 50 MCG TAB PO SCH (06:08)
[2023-03-07] MEDS: INSULIN ASPART (NovoLOG) 100 UNIT/ML VIAL SQ SCH ×2 (06:24→11:42)
[2023-03-07 06:26] LABS: Glucose,Whole Blood 109 mg/dL (70-110)
[2023-03-07 07:39] LABS: Anisocytosis Slight; Basophils % (A) 1 %; Eosinophils # (A) 0.6 k/uL (0-0.7); Eosinophils % (A) 8 %; HCT 25.7 % (39.0-53.0); HGB 7.8 gm/dL (13.0-17.5); Hypochromasia Marked; Lymphocytes # (A) 0.7 k/uL (1.0-4.8); Lymphocytes % (A) 10 %; MCH 24.2 pg (25.0-35.0); MCHC 30.4 g/dL (31.0-37.0); MCV 79.7 fL (80.0-100.0); Mean Platelet Volume 7.6; Microcytosis Slight; Monocytes # (A) 0.5 k/uL (0-1.0); Monocytes % (A) 7 %; Neutrophils # (A) 5.2 k/uL (1.3-7.7); Neutrophils % (A) 72 %; Platelet Count 429 k/uL (150-450); Poikilocytosis Moderate; RBC 3.22 m/uL (4.30-5.90); RDW 18.7 % (11.5-15.5); WBC 7.2 k/uL (3.8-10.6)
[2023-03-07 07:47] LABS: Methylmalonic Acid 0.47 umol/L (<0.40)
[2023-03-07] MEDS: SYMBICORT 80-4.5 MCG INHALER INHALATION SCH (08:39)
[2023-03-07] MEDS: ISOSORBIDE MONONITRATE ER 60 MG TAB.ER.24H PO SCH (08:40)
[2023-03-07] MEDS: glipiZIDE 10 MG TAB PO SCH (08:40)
[2023-03-07] MEDS: SODIUM FERRIC GLUCONAT-SUCROSE 125 MG in SODIUM CHLORIDE 0.9% 100 ML IVPB SCH (08:40)
[2023-03-07] MEDS: PARoxetine 20 MG TAB PO SCH (08:40)
[2023-03-07] MEDS: PANTOPRAZOLE 40 MG/10 ML VIAL IVP SCH (08:40)
[2023-03-07] MEDS: metFORMIN 500 MG TAB PO SCH (08:40)
[2023-03-07] MEDS: MULTIVITAMINS, THERA 1 EACH TAB PO SCH (08:40)
[2023-03-07] MEDS: carvediloL 6.25 MG TAB PO SCH (08:40)
--- NOTE | 2023-03-07 09:12 | P.PN ---
Subjective Progress Note Date: 03/07/23 Principal diagnosis: Anemia This is a pleasant 67-year-old male who had presented to [facility] with complaints of dizziness and recheck on labs. He was recently found to be anemic and received 2 units of blood last week at outside facility. He has a history of coronary artery disease status post stents, diabetes mellitus, hypertension, hyperlipidemia, chronic anemia, and recent TURP. He states following his surgery had a significant amount of bloody urine procedure was done on 01/28/2023. Patient does take aspirin and Plavix for coronary artery disease, denies any anticoagulation use or NSAID use. He was found to have a hemoglobin of 6.6 at [facility] was given 1 unit of blood and transferred to [facility] for further workup. Apparently patient also had a stool that was negative for occult blood. Gastroenterology was consulted for anemia. Patient denies any blood in his stool or black stool, denies any history of GI bleed. Denies any history of peptic ulcer disease, GERD, or epigastric pain. His last colonoscopy was with Dr. Castle and June 2019 that reported a normal colon. He believes he may have had an EGD in the past as well several years ago. Patient states he used to take iron however he stopped taking it and then restarted about one week ago. On admission he was noted to have a elevated BNP consistent with congestive heart failure. He does state that he does have a history of CHF. He reports that he is still having some difficulty with breathing and shortness of breath, denies any chest pain, abdominal pain, nausea, vomiting, fever or chills. Patient had a drop in his hemoglobin this morning to 6.7. One unit of blood as ordered. Patient is currently on 2 L of nasal cannula. Admitting Labs WBC 8.8 hemoglobin 7.3 hematocrit 23.6 platelet count 484,000 INR 1.2 sodium 137 potassium 4.5 BUN of 45 creatinine 1.26 total bilirubin 0.7 AST 21 ALT 22 alkaline phosphatase 75 a trace of blood and urine. 03/05/2023 Patient was seen and examined today as a follow-up. He is without any acute changes. He denies any blood in his stool or black stool Still has 2 L oxygen per nasal cannula with saturations of 97-100%. He denies any chest pain or shortness of breath. He received 1 unit of blood yesterday with a repeat hemoglobin of 8.1. This morning's labs hemoglobin 7.5. He received IV iron today. Denies any abdominal pain, nausea or vomiting. 03/07/2023 Patient seen and examined today as a follow-up. Yesterday he underwent EGD and colonoscopy. Upper endoscopy revealed mild antral gastritis but no evidence of esophagitis or peptic ulcer disease. Colonoscopy revealed 3 mm rectal polyp status post biopsy and small internal hemorrhoids. This was discussed with the patient. He is scheduled to get 1 more dose of parental iron. He denies any abdominal pain, nausea, or vomiting. Denies any blood in his stool or black stool. He is being followed by hematology for further workup for anemia. No acute changes through the night. Repeat hemoglobin today 7.8 hematocrit 25 platelet count 429,000. Objective - Vital Signs Vital signs: Vital Signs Temp 98.1 F 03/06/23 23:11 Pulse 72 03/07/23 04:00 Resp 17 03/07/23 04:00 BP 103/69 03/07/23 04:00 Pulse Ox 98 03/07/23 04:00 FiO2 Intake & Output 03/06/23 03/07/23 03/07/23 18:59 06:59 18:59 Intake Total 1340 Balance 1340 Weight 100.6 kg Intake: IV 450 Oral 890 Other: Voiding Method Toilet Toilet # Voids 2 1 - Exam General appearance: The patient is alert, oriented, appears in no acute distress. HET: Head is normocephalic and atraumatic. Conjunctiva pink. Sclera anicteric. Neck: Supple without lymphadenopathy. Abdomen: Soft, nontender, nondistended with bowel sounds. No guarding or rigidity. Extremities: Normal skin color and turgor. No pedal edema Skin: No rashes, no jaundice Neurological: No focal deficits. Alert and oriented. - Labs CBC & Chem 7: 03/07/23 07:10 03/06/23 06:27 Labs: Abnormal Lab Results - Last 24 Hours (Table) 03/06/23 03/06/23 03/06/23 Range/Units : 06:27 11:18 RBC 3.15 L (4.30-5.90) m/uL Hgb 7.5 L (13.0-17.5) gm/dL Hct 24.5 L (39.0-53.0) % MCV 77.8 L (80.0-100.0) fL MCH 23.8 L (25.0-35.0) pg MCHC 30.5 L (31.0-37.0) g/dL RDW 17.9 H (11.5-15.5) % BUN 22 H (9-20) mg/dL Glucose 129 H (74-99) mg/dL POC Glucose (mg/dL) 157 H (70-110) mg/dL Calcium 8.3 L (8.4-10.2) mg/dL 03/06/23 03/06/23 Range/Units 17:14 19:46 RBC (4.30-5.90) m/uL Hgb (13.0-17.5) gm/dL Hct (39.0-53.0) % MCV (80.0-100.0) fL MCH (25.0-35.0) pg MCHC (31.0-37.0) g/dL RDW (11.5-15.5) % BUN (9-20) mg/dL Glucose (74-99) mg/dL POC Glucose (mg/dL) 193 H 273 H (70-110) mg/dL Calcium (8.4-10.2) mg/dL Assessment and Plan (1) Microcytic hypochromic anemia Narrative/Plan: 67-year-old who presented with microcytic hypochromic anemia with a known history of chronic anemia who was previously on iron and stopped with a recent restart one week ago. Patient underwent TURP on 01/28/2023 for BPH and urinary retention at that time preop blood work did show hemoglobin 9.1. Patient states he had a significant amount of gross hematuria post procedure. Patient had some complaints of dizziness and has had some shortness of breath he was noted to have elevated BNP with a known history of CHF. Was initially seen on outside facility and found to have a hemoglobin of 6.6 given 2 units of blood at that time. Denies any signs or symptoms of GI bleed. No previous history of GI bleed. Patient does have a history of coronary artery disease on aspirin and Plavix. Last colonoscopy in 2018 with a normal colon. Unclear etiology at this time of anemia, could likely be related to post procedure TURP with a known history of chronic anemia. Recommend continuing iron, will transfuse for hemoglobin of 6.7. Need to consider GI source of blood source especially as she is on dual antiplatelet for coronary artery disease and stenting. At this time patient still having shortness of breath last taken aspirin and Plavix yesterday in 03/03/2023. Patient underwent EGD colonoscopy without any evidence of old blood or active bleeding. He is to follow-up with gastroenterology in a couple weeks for biopsy results and evaluation of anemia. If anemia persists, may consider outpatient small bowel capsule endoscopy. Continue with recommendations from hematology. Recommend outpatient oral iron. Current Visit: Yes Status: Acute Code(s): D50.9 - IRON DEFICIENCY ANEMIA, UNSPECIFIED SNOMED Code(s): 10220627 (2) CHF (congestive heart failure) Current Visit: Yes Status: Acute Code(s): I50.9 - HEART FAILURE, UNSPECIFIED SNOMED Code(s): 80175394 (3) Coronary artery disease Current Visit: Yes Status: Acute Code(s): I25.10 - ATHSCL HEART DISEASE OF [place] CORONARY ARTERY W/O ANG PCTRS SNOMED Code(s): 05059708 (4) Diabetes mellitus Current Visit: Yes Status: Acute Code(s): E11.9 - TYPE 2 DIABETES MELLITUS WITHOUT COMPLICATIONS SNOMED Code(s): 06509665 (5) S/P TURP (status post transurethral resection of prostate) Narrative/Plan: Done on 01/28/2023 Current Visit: Yes Status: Acute Code(s): Z90.79 - ACQUIRED ABSENCE OF OTHER GENITAL ORGAN(S) SNOMED Code(s): 602148646 (6) Chronic anemia Current Visit: Yes Status: Acute Code(s): D64.9 - ANEMIA, UNSPECIFIED SNOMED Code(s): 779334063 Plan: 1. Continue symptomatic and supportive care 2. May resume aspirin and Plavix 3. Anemia workup ordered, consistent with iron deficiency anemia 4. Protonix 40 mg daily 5. IV iron ordered daily 3 6. Patient is status post upper and lower endoscopy with no active bleeding 7. Recommend continued oral iron outpatient setting 8. Continue with recommendations from hematology Thank you for this consultation, the patient is cleared from gastroenterology for discharge. It was discussed with patient endoscopy results and to follow-up in 2 weeks for biopsy results and possible small bowel capsule endoscopy in the outpatient setting. Dr. Lester Kelly I agree with the dictator's note, documented as a scribe by Matilde Noyola.
[2023-03-07 09:48] VITALS: PULSE 75; RESP 18
[2023-03-07 11:38] LABS: Glucose,Whole Blood 145 mg/dL (70-110)
[2023-03-07 11:39] VITALS: BP 118/62; TEMP 98
--- NOTE | 2023-03-07 13:35 | P.DS ---
Providers Date of admission: 03/03/23 17:49 Expected date of discharge: 03/07/23 Attending physician: Marcio Dodge Consults: 03/03/23 19:08 Consult Physician Routine Consulting Provider: Daniela Kelly Consult Reason/Comments: Anemia Do you want consulting provider notified?: Yes 03/04/23 12:12 Consult Physician Routine Consulting Provider: Tyler Fernandes Consult Reason/Comments: anemia Do you want consulting provider notified?: Yes Primary care physician: Elizabeth Hospital Course: Chief Complaint: Dizzy This is a pleasant 67-year-old patient follows with Dr. Guzman. X Ray Operator is . Chronic stable medical conditions include diabetes, hypertension, hyperlipidemia, hypothyroid. Patient underwent prostatectomy by Dr. stewart about 3 weeks ago. A week prior to that patient cardiac catheterization. No intervention. Previously patient's had stents placed. Patient does go to rehab at [facility] Friday and Wednesdays. For last couple days patient being feeling more dizzy and lightheaded. When patient was in the parking lot at [facility]. Became more short of breath. Had to be helped inside the hospital. Found to be significantly anemic with a hemoglobin of 6.6. A week prior patient had a similar episode. Was found to be anemic and had to be given 2 units of blood. Patient does not remember having black stools. Also had edema March 05: No external evidence of bleeding. Breathing better. Due for upper and lower GI endoscopy tomorrow. Clear liquid diet. Feeling better. March 06: Patient was seen this morning... Nothing by mouth. Showed mild antral gastritis. And a rectal polyp. Biopsy done. If further drop in hemoglobin that outpatient small bowel capsule endoscopy. Repeat CBC in the morning. March 07: Remain stable. Discussed with GRADE CHECKER from GI. Patient to have outpatient small bowel capsule study, if further drop in hemoglobin. Repeat CBC in 5 days. Discussed with patient. Patient will continue to aspirin. Has been taking Plavix along with that for a long time. Which is being discontinued. Discussion and discharge planning more than 35 minutes Past medical history to include: Diabetes, hypertension, hyperlipidemia, CAD with stent, depression, Social history: Lives alone. She smoked for about 30 years stopped in 2000. Alcohol occasionally. 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 Physical examination: VITAL SIGNS: 98, 75, 18, 118/62, 98% on 2 L GENERAL: BMI 31.7, sitting up, comfortable EYES: Pupils equal. Conjunctiva palel. HEENT: External appearance of nose and ears normal, oral cavity grossly normal. NECK: JVD not raised; masses not palpable. HEART: First and second heart sounds are normal; mild edema. LUNGS: Respiratory rate normal; decreased breath sounds. ABDOMEN: Soft, nontender, liver spleen not palpable, no masses palpable. PSYCH: Alert and oriented x3; mood and affect normal. MUSCULOSKELETAL:No Clubbing/cyanosis;muscles-grossly intact. OA INVESTIGATIONS, reviewed in the clinical context: March 07: Hemoglobin 7.8 platelets 429 March 06: White count 6.7 hemoglobin 7.5 potassium 4.4 creatinine 1.03 Renal ultrasound: Corticomedullary differentiation is mentating. Some cortical scarring in the renal cortex on the left from prior injury. Iron 14 TIBC 399% saturation 3.51 transferred and 25 ferritin 7.3 B12 297 folate 22.5 EKG tracing personally reviewed by me-no sinus rhythm. PVC Chest x-ray film personally reviewed by me-cardiomegaly lung mcdowell clear. March 03: Hemoglobin 7.3 platelets 404 sodium 137 potassium 4.5 BUN 45 creatinine 1.26 UA leukoesterase large. WBC 105 blood trace 01/28/2023: Hemoglobin 9.1 01/20/2023: Creatinine 1.4 Assessment and plan: -Acute severe anemia. Symptomatic. Patient about a week ago receive 2 units of blood. 2 more units of blood here.. prostatectomy about 2 weeks ago. That'll account for some blood loss. EGD showed mild gastritis. Colonoscopy showed 3 mm rectal polyp. Plan is for small bowel capsule study if further drop in hemoglobin outpatient. Patient also seen by manager social media. Outpatient follow-up with Dr. Lester Kelly. -Microcytic anemia: Severe iron deficiency anemia Endoscopy done. -Diabetes mellitus type 2, on oral hypoglycemic Follow Accu-Cheks with sliding scale -CAD with a prior history of stent. Patient had a cardiac catheterization 3 weeks ago. No intervention. 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 Renal ultrasound unremarkable -Bladder outflow obstruction, status post prostatectomy 2 weeks ago Flomax -Anxiety depression Paxil -Essential hypertension Cozaar, Coreg -Hypothyroid Synthroid -COPD in a previous smoker Advair -Hyperlipidemia Lipitor -Full code Disposition: Home Plan - Discharge Summary Discharge Rx Participant: No New Discharge Prescriptions: Continue Isosorbide Mononitrate ER [Imdur] 60 mg PO DAILY Zolpidem [Ambien] 10 mg PO HS PARoxetine [Paxil] 20 mg PO DAILY Levothyroxine Sodium [Synthroid] 50 mcg PO DAILY metFORMIN HCL [Glucophage] 1,000 mg PO BID Insulin NPH Hum/Reg Insulin Hm [NovoLIN 70-30 100 UNIT/ML VIAL] 10 unit SQ PC-BID Atorvastatin [Lipitor] 80 mg PO HS Solifenacin Succinate 5 mg PO HS Furosemide [Lasix] 40 mg PO DAILY Fluticasone Propion/Salmeterol [Advair 250-50 Diskus] 1 puff INHALATION RT- BID glipiZIDE [Glucotrol] 10 mg PO DAILY Potassium Chloride ER [K-Dur 10] 10 meq PO DAILY Multivitamins, Thera [Multivitamin (formulary)] 1 tab PO DAILY Tamsulosin [Flomax] 0.4 mg PO HS Losartan [Cozaar] 50 mg PO HS Clopidogrel [Plavix] 75 mg PO DAILY Spironolactone 25 mg PO DAILY Aspirin [Adult Low Dose Aspirin EC] 81 mg PO DAILY Ferrous Sulfate [Iron (65 MG Elemental)] 325 mg PO DAILY Changed carvediloL 6.25 mg PO BID #0 Discharge Medication List Insulin NPH Hum/Reg Insulin Hm [NovoLIN 70-30 100 UNIT/ML VIAL] 10 unit SQ PC- BID 07/07/19 [History] Isosorbide Mononitrate ER [Imdur] 60 mg PO DAILY 07/07/19 [History] Levothyroxine Sodium [Synthroid] 50 mcg PO DAILY 07/07/19 [History] PARoxetine [Paxil] 20 mg PO DAILY 07/07/19 [History] Zolpidem [Ambien] 10 mg PO HS 07/07/19 [History] metFORMIN HCL [Glucophage] 1,000 mg PO BID 07/07/19 [History] Aspirin [Adult Low Dose Aspirin EC] 81 mg PO DAILY 01/24/23 [History] Atorvastatin [Lipitor] 80 mg PO HS 01/24/23 [History] Clopidogrel [Plavix] 75 mg PO DAILY 01/24/23 [History] Furosemide [Lasix] 40 mg PO DAILY 01/24/23 [History] Losartan [Cozaar] 50 mg PO HS 01/24/23 [History] Multivitamins, Thera [Multivitamin (formulary)] 1 tab PO DAILY 01/24/23 [History] Potassium Chloride ER [K-Dur 10] 10 meq PO DAILY 01/24/23 [History] Solifenacin Succinate 5 mg PO HS 01/24/23 [History] Spironolactone 25 mg PO DAILY 01/24/23 [History] Tamsulosin [Flomax] 0.4 mg PO HS 01/24/23 [History] Ferrous Sulfate [Iron (65 MG Elemental)] 325 mg PO DAILY 03/03/23 [History] Fluticasone Propion/Salmeterol [Advair 250-50 Diskus] 1 puff INHALATION RT-BID 03/03/23 [History] glipiZIDE [Glucotrol] 10 mg PO DAILY 03/03/23 [History] carvediloL 6.25 mg PO BID #0 03/07/23 [Rx] Follow up Appointment(s)/Referral(s): Tyler Fernandes MD [STAFF PHYSICIAN] - 4 Weeks (office closed, pt. to make own haseeb) Sandro Guzman MD [Primary Care Provider] - 1-2 days (office closed, pt. to make own haseeb. Have them draw CBC. ) Daniela Kelly MD [STAFF PHYSICIAN] - 2 Weeks (office closed, pt. to make own haseeb.) Patient Instructions/Handouts: Anemia (DC) Activity/Diet/Wound Care/Special Instructions: cbc - 5 days
== END 2023-03-07 14:02 | disposition home or self-care (01) | DRG 812 ==
LOC: EC 17:38 → 3SCARD 17:49
PROVIDERS: ADMIT Hospitalist; ATTEND Hospitalist
PROC: 30233N1 Transfusion of Nonautologous Red Blood Cells into Peripheral Vein, Percutaneous Approach (ICD-10-PCS; principal; 2023-03-04)
PROC: 0DBP8ZZ Excision of Rectum, Via Natural or Artificial Opening Endoscopic (ICD-10-PCS; 2023-03-06)
PROC: 0DB78ZX Excision of Stomach, Pylorus, Via Natural or Artificial Opening Endoscopic, Diagnostic (ICD-10-PCS; 2023-03-06 07:55)
DX: D50.9 Iron deficiency anemia, unspecified (principal); I13.0 Hypertensive heart and chronic kidney disease with heart failure and stage 1 through stage 4 chronic kidney disease, or unspecified chronic kidney disease; E03.9 Hypothyroidism, unspecified; E11.22 Type 2 diabetes mellitus with diabetic chronic kidney disease; N18.2 Chronic kidney disease, stage 2 (mild); E78.5 Hyperlipidemia, unspecified; F32.A Depression, unspecified; F41.9 Anxiety disorder, unspecified; F51.04 Psychophysiologic insomnia; I25.10 Atherosclerotic heart disease of native coronary artery without angina pectoris; J44.9 Chronic obstructive pulmonary disease, unspecified; E66.9 Obesity, unspecified; K29.70 Gastritis, unspecified, without bleeding; K62.1 Rectal polyp; I50.9 Heart failure, unspecified; K64.8 Other hemorrhoids; I25.2 Old myocardial infarction; Z79.02 Long term (current) use of antithrombotics/antiplatelets; Z79.4 Long term (current) use of insulin; Z79.51 Long term (current) use of inhaled steroids; Z79.82 Long term (current) use of aspirin; Z79.84 Long term (current) use of oral hypoglycemic drugs; Z79.890 Hormone replacement therapy; Z79.899 Other long term (current) drug therapy; Z90.79 Acquired absence of other genital organ(s); Z95.5 Presence of coronary angioplasty implant and graft; Z68.37 Body mass index [BMI] 37.0-37.9, adult
CPT/HCPCS: 36415; 43239; 45378; 71046; 76770; 80048; 80053; 81001; 82525; 82607; 82728; 82746; 83036; 83540; 83550; 83735; 83880; 83921; 85025; 85027; 85610; 85730; 86850; 86900; 86901; 86920; 93005; 94640; 94760; 96374; 99285